=== PATIENT | female | born 1945 | race Caucasian/White ===

== ENCOUNTER 2018-09-07 19:34 | Emergency (ER) | payer MEDICARE ==
[2018-09-07 20:03] LABS: #Basophils 0.1 thou/uL (0.0-0.2); #Eosinphils 0.2 thou/uL (0.0-0.7); #Lymphocytes 1.2 thou/uL (1.20-3.40); #Monocytes 0.6 thou/uL (0.11-0.59); #Neutrophils 8.1 thou/uL (1.40-6.50); %Basophils 0.6 % (0.0-1.0); %Eosinophils 1.9 % (0.0-10.0); %Lymphocytes 12.1 % (21.0-51.0); %Monocytes 6.1 % (0.0-10.0); %Neutrophils 79.3 % (42.0-75.0); Hemoglobin 15.3 g/dL (12.0-16.0); Mean Corpuscular HGB CONC 33.7 g/dL (32.0-36.0); Mean Corpuscular Hemoglobin 32.1 pg (27.0-31.0); Mean Corpuscular Volume 95.2 fL (78.0-98.0); Mean Platelet Volume 6.8 fL (7.4-10.4); Platelet Count 238 thou/uL (130-400); Red Blood Cell (RBC) Count 4.75 mill/uL (4.20-5.40); White Blood Cell (WBC) Count 10.2 thou/uL (4.8-10.8)
--- NOTE | 2018-09-07 20:14 | CT ---
EXAM: CT brain without contrast HISTORY: Altered mental status with confusion COMPARISON: None TECHNIQUE: Multiple contiguous axial images were obtained and a CT of the brain without contrast. FINDINGS: The brain is normal in morphology and attenuation without focal lesions or confluent areas of infarction. There is no evidence of hydrocephalus, intracranial hemorrhage, or extra-axial fluid collection. The calvarium and overlying soft tissues are unremarkable. The visualized paranasal sinuses and masto id air cells are well aerated. IMPRESSION: No evidence of acute intracranial abnormality
[2018-09-07 20:26] LABS: ALT (SGPT) 24 U/L (8-55); AST (SGOT) 23 U/L (5-34); Acetaminophen Less than 6.0 mcg/mL (10.0-30.0); Albumin 4.3 g/dL (3.4-4.8); Alcohol Less than 10 mg/dL (Less than 10); Alkaline Phosphatase 84 U/L (40-150); Anion Gap 14 mmol/L (10-20); BUN (Urea Nitrogen) 15 mg/dL (9.8-20.1); CK (CPK) 112 U/L (29-168); Calc. Creatinine Clearance 0 mL/min (70-130); Calcium 9.8 mg/dL (7.8-10.44); Carbon Dioxide 27 mmol/L (23-31); Chloride 106 mmol/L (98-107); Estimated GFR-MDRD 69; Globulin 2.3 g/dL (2.4-3.5); Glucose 142 mg/dL (83-110); Potassium 3.6 mmol/L (3.5-5.1); Protein, Total 6.6 g/dL (6.0-8.3); Salicylate Less than 8.0 mg/dL (15.0-30.0); Sodium 143 mmol/L (136-145)
[2018-09-07] MEDS ORDERED: Bacitracin Zinc 1 Packet ONE (20:36)
[2018-09-07 23:28] LABS: Bilirubin Negative (Negative); Blood, Urine Trace (Negative); Clarity CLEAR (Clear); Glucose, Urine (Dipstick) Negative (Negative); Leukocyte Negative (Negative); Nitrite Negative (Negative); Protein, Urine (Dipstick) Negative (Neg-Trace); Specific Gravity, Urine 1.009 (1.002-1.036); Urobilinogen 0.2 mg/dL (0.2-1.0)
[2018-09-07 23:29] LABS: Bacteria/HPF None Seen HPF (None Seen); Hyaline Casts/LPF 4-6 HYALINE CAST LPF (0-3 Hyaline); Pathc Cast-AUWi Flag 1.49 (0-2.49); Squamous Epithelial 0-3 HPF (0-3)
[2018-09-07 23:39] LABS: Medtox Reader # READER 1
[2018-09-07 23:41] LABS: Amphetamine Not Detected (NotDetected); Barbiturates Screen Not Detected (NotDetected); Benzodiazepine Screen Detected (NotDetected); Cocaine Metabolite Screen Not Detected (NotDetected); Medtox Control Line Valid? VALID (VALID); Methadone Not Detected (NotDetected); Methamphetamine Not Detected (NotDetected); Opiate Screen Not Detected (NotDetected); Oxycodone Screen Not Detected (NotDetected); Phencyclidine (PCP) Not Detected (NotDetected); THC/Cannabinoid Screen Not Detected (NotDetected); Tricyclic Screen Not Detected (NotDetected)
[2018-09-08] MEDS ORDERED: cloNIDine 0.1 MG TAB ONE (01:36)
[2018-09-08] MEDS ORDERED: Haloperidol Lactate 5 MG/ML VIAL ONE (02:25)
== END 2018-09-08 04:58 ==
LOC: ERS 19:34
DX: F29 Unspecified psychosis not due to a substance or known physiological condition (principal); J44.9 Chronic obstructive pulmonary disease, unspecified; I10 Essential (primary) hypertension; M81.0 Age-related osteoporosis without current pathological fracture; F20.9 Schizophrenia, unspecified; Z87.891 Personal history of nicotine dependence; Z79.899 Other long term (current) drug therapy; Z79.51 Long term (current) use of inhaled steroids
CPT/HCPCS: 36415; 70450; 80053; 80306; 80307; 81003; 81015; 82550; 84443; 85025; 96360; 96372; J1630

== ENCOUNTER 2018-09-23 12:24 | Inpatient (IN) | payer MEDICARE ==
--- NOTE | 2018-09-23 14:40 | PDOC.FPRHP ---
- History PMHx: PSHx: FHx: Social: - Vital signs BP: [] HR: [] RR: [] Tmax: [] Pox: []% on [] Wt: [] FMR H&P: Upper Level - Plan Date/Time: 09/23/18 1440 I, [], have evaluated this patient and agree with findings/plan as outlined by investigator internal affairs resident. Pertinent changes/additions are listed here.
[2018-09-23] MEDS ORDERED: Bisacodyl 5 MG TAB PO PRN (16:41)
[2018-09-23] MEDS ORDERED: Lorazepam 2 MG/ML VIAL SLOW IVP PRN (16:43)
--- NOTE | 2018-09-23 17:37 | HP ---
PRIMARY CARE PROVIDER: Dr. Guerrero at [facility]. CHIEF COMPLAINT: Seizure. HISTORY OF PRESENT ILLNESS: Ms. Mackey is a pleasant 73-year-old lady who was seen at [facility] on September 23, 2018, following transfer from emergency room at times. The patient is able to provide some history. Collateral history was obtained from discussion with emergency room physician, review of medical records, and discussion with the patient's daughter, Carl, over the telephone. Ms. Mackey was living at home with her family. She was admitted to [facility] for 4 days. On September 14, 2018, she was admitted to [facility] after being sent there from [facility] for systemic inflammatory response syndrome, dementia, lung nodule, and positive blood culture. Following that admission, she was discharged to [facility] on September 20, 2018. Ms. Mackey' daughter reports that at some point between these transfers, her psychiatric medications were not resumed. At [facility], she was found to have fallen at 6:30 a.m. She had a hematoma to her forehead. She also had skin tears and bruising. When EMS arrived at [facility], she had a 30-second tonic clonic seizure with complete resolution following that. She was evaluated at [facility]. She had a recurrence of the seizure. She was therefore sent to the emergency room at [facility] for admission for Neurology Service input. The patient denies any chest pain or shortness of breath. She denies any fevers or chills. She denies any nausea or vomiting. She cannot recall having the seizure. REVIEW OF SYSTEMS: All other systems reviewed and found to be negative. PAST MEDICAL HISTORY: Asthma, gout, and COPD. PAST SURGICAL HISTORY: Cholecystectomy, spinal surgery, and cervical surgery. PSYCHIATRIC HISTORY: Schizophrenia. SOCIAL HISTORY: No history of alcohol use or recreational drug use. She is a former tobacco user. Currently in the Memory Care unit at [facility]. FAMILY HISTORY: The patient denies any family history of premature coronary artery disease. ALLERGIES: AZITHROMYCIN, CEFUROXIME, CODEINE, AND SULFA. HOME MEDICATIONS: As dictated by Dr. Fischer in her discharge summary dated September 20, 2018. It needs to be clarified whether all these medications are currently being administered. CODE STATUS: I discussed her code status. She is DNAR. PHYSICAL EXAMINATION: GENERAL: On examination, Ms. Mackey is awake and alert, not in acute distress. VITAL SIGNS: Blood pressure is 134/74, pulse 85, respiratory rate 26, oxygen saturation 91% on 2 L of oxygen, and temperature is 99.3 degrees Fahrenheit. HEENT: Eyes, no scleral icterus and no conjunctival pallor. ENT, moist mucosal membranes. No oropharyngeal erythema or exudates. NECK: Supple, nontender, trachea is midline. RESPIRATORY: Accessory muscles of breathing are not active. Chest wall movements are symmetric bilaterally. Lungs are clear to auscultation without wheeze, rhonchi, or crepitations. CARDIOVASCULAR: S1 and S2 are heard, regular. Peripheral pulses palpable. No carotid bruit. No pericardial rub. ABDOMEN: Soft, nontender, bowel sounds are heard. NEUROLOGIC: Cranial nerves 2 through 12 are intact. No focal motor or sensory deficits. Power is 5/5 in all 4 extremities. Deep tendon reflexes 2+, plantars downgoing bilaterally. MUSCULOSKELETAL: Power is 5/5 in all 4 extremities. SKIN: She has a hematoma over the forehead. She has lacerations over both arms. She also has a stage 3 buttock wound and bruising. LYMPHATIC: No cervical lymphadenopathy. PSYCHIATRIC: Normal mood, normal affect. The patient is oriented to person and place, not to time. LABORATORY DATA: Ms. Mackey' labs and investigations were reviewed. Past CT scan of the brain did not show any CT evidence of acute intracranial process. CT scan of the cervical spine showed moderate degenerative changes of cervical spine, fusion at C6-C7 and no acute fracture. She has leukocytosis with 17,900 white cells, of which 89.2% are neutrophils, normal hemoglobin, elevated platelet count of 437,000. Normal sodium, normal potassium, decreased carbon dioxide of 18, elevated anion gap of 25, elevated blood urea nitrogen of 21, normal creatinine, normal calcium, normal ALT, normal alkaline phosphatase, normal total bilirubin, mildly elevated AST of 52, urinalysis that is negative for nitrite and leukocyte esterase. ASSESSMENT AND PLAN: Ms. Mackey is a pleasant 73-year-old lady, who was seen at [facility] on September 23, 2018. Her problem list includes: 1. Seizures: Ms. Mackey had 2 seizures today. She does not have any history of seizures. She will be admitted to the hospital for further management including seizure precautions. Neurology Service will be consulted for opinion and help with management. I will start her on p.r.n. Ativan for seizures. 2. Schizophrenia: Her psychoactive medications need to be clarified and resumed. 3. Leukocytosis: Urinalysis is unremarkable. We will check chest x-ray to rule out any infiltrates. If she spikes fever, we will start the patient on empiric antibiotics. 4. Chronic obstructive pulmonary disease: Appears to be stable. Many thanks for allowing me to participate in your patient's care. Please feel free to contact me with any questions or concerns. LEVEL OF RISK: Moderate. LEVEL OF COMPLEXITY: Moderate. Job ID: [id number]
--- NOTE | 2018-09-23 19:40 | RAD ---
PA AND LATERAL CHEST: 09/23/18 HISTORY: Cough. COMPARISON: 03/09/11 study. Heart size and mediastinum are within normal limits. The lungs are clear of any infiltrative process. There are arthritic changes of the spine. IMPRESSION: No active intrathoracic disease. POS: [facility]
[2018-09-23 19:51] VITALS: BMI 21.9
[2018-09-23] MEDS: OLANZapine 2.5 MG TAB PO SCH (20:28)
[2018-09-23] MEDS: Donepezil HCl 5 MG TAB PO SCH (20:28)
[2018-09-23] MEDS: Lorazepam 1 MG TAB PO SCH (20:28)
[2018-09-23] MEDS ORDERED: PROVENTIL INHALER 6.7 G (200 INHALATIONS) INH PRN (20:29)
[2018-09-23] MEDS: Cyproheptadine 4 MG TAB PO SCH (21:06)
[2018-09-23] MEDS: metroNIDAZOLE 500 MG TAB PO SCH (21:06)
[2018-09-23] MEDS: Magnesium Oxide 400 MG TAB PO SCH (21:06)
[2018-09-24] MEDS: Ipratropium Bromide 2.5 ml Neb NEB SCH ×2 (00:26→06:57)
[2018-09-24] MEDS: Acetaminophen 325 MG TAB PO PRN ×2 (01:01→23:46)
[2018-09-24 01:03] LABS: #Eosinphils 0.1 thou/uL (0.0-0.7); #Lymphocytes 0.6 thou/uL (1.20-3.40); #Monocytes 0.7 thou/uL (0.11-0.59); #Neutrophils 10.2 thou/uL (1.40-6.50); %Basophils 0.2 % (0.0-1.0); %Eosinophils 0.6 % (0.0-10.0); %Lymphocytes 5.5 % (21.0-51.0); %Monocytes 5.7 % (0.0-10.0); %Neutrophils 87.9 % (42.0-75.0); Hemoglobin 12.5 g/dL (12.0-16.0); Mean Corpuscular HGB CONC 32.9 g/dL (32.0-36.0); Mean Corpuscular Hemoglobin 31.8 pg (27.0-31.0); Mean Corpuscular Volume 96.7 fL (78.0-98.0); Mean Platelet Volume 6.3 fL (7.4-10.4); Platelet Count 243 thou/uL (130-400); RBC Distribution Width 11.9 % (11.5-14.5); Red Blood Cell (RBC) Count 3.92 mill/uL (4.20-5.40); White Blood Cell (WBC) Count 11.6 thou/uL (4.8-10.8)
[2018-09-24 01:50] LABS: Anion Gap 15 mmol/L (10-20); BUN (Urea Nitrogen) 17 mg/dL (9.8-20.1); Calc. Creatinine Clearance 40 mL/min (70-130); Calcium 8.4 mg/dL (7.8-10.44); Carbon Dioxide 21 mmol/L (23-31); Chloride 106 mmol/L (98-107); Estimated GFR-MDRD 68; Glucose 72 mg/dL (83-110); Potassium 3.7 mmol/L (3.5-5.1); Sodium 138 mmol/L (136-145)
[2018-09-24 05:30] LABS: #Eosinphils 0.1 thou/uL (0.0-0.7); #Lymphocytes 0.8 thou/uL (1.20-3.40); #Monocytes 0.5 thou/uL (0.11-0.59); #Neutrophils 8.8 thou/uL (1.40-6.50); %Basophils 0.3 % (0.0-1.0); %Eosinophils 0.8 % (0.0-10.0); %Lymphocytes 8.1 % (21.0-51.0); %Monocytes 5.1 % (0.0-10.0); %Neutrophils 85.8 % (42.0-75.0); Hemoglobin 12.3 g/dL (12.0-16.0); Mean Corpuscular HGB CONC 33.3 g/dL (32.0-36.0); Mean Corpuscular Hemoglobin 31.8 pg (27.0-31.0); Mean Corpuscular Volume 95.7 fL (78.0-98.0); Mean Platelet Volume 6.4 fL (7.4-10.4); Platelet Count 251 thou/uL (130-400); RBC Distribution Width 12.1 % (11.5-14.5); Red Blood Cell (RBC) Count 3.85 mill/uL (4.20-5.40); White Blood Cell (WBC) Count 10.3 thou/uL (4.8-10.8)
[2018-09-24 05:45] LABS: Anion Gap 10 mmol/L (10-20); BUN (Urea Nitrogen) 18 mg/dL (9.8-20.1); Calc. Creatinine Clearance 38 mL/min (70-130); Calcium 8.3 mg/dL (7.8-10.44); Carbon Dioxide 27 mmol/L (23-31); Chloride 105 mmol/L (98-107); Estimated GFR-MDRD 64; Glucose 107 mg/dL (83-110); Potassium 3.5 mmol/L (3.5-5.1); Sodium 138 mmol/L (136-145)
[2018-09-24] MEDS: Budesonide 0.5 MG/2 ML NEB NEB SCH (06:50)
[2018-09-24] MEDS: Lorazepam 1 MG TAB PO SCH ×2 (08:28→20:05)
[2018-09-24] MEDS: Calcium Carbonate 500 MG TAB PO SCH (08:31)
[2018-09-24] MEDS: predniSONE 5 MG TAB PO SCH (08:31)
[2018-09-24] MEDS: Vitamin E 400 UNITS CAP PO SCH (08:31)
[2018-09-24] MEDS: Cyproheptadine 4 MG TAB PO SCH ×2 (08:31→20:05)
[2018-09-24] MEDS: Magnesium Oxide 400 MG TAB PO SCH ×2 (08:31→20:05)
[2018-09-24] MEDS: metroNIDAZOLE 500 MG TAB PO SCH ×3 (08:32→20:05)
[2018-09-24] MEDS: Folic Acid 1 MG TAB PO SCH (08:32)
[2018-09-24] MEDS: Thiamine 100 MG TAB PO SCH (09:00)
--- NOTE | 2018-09-24 12:53 | MRI ---
MRI OF BRAIN WITHOUT CONTRAST: 09/24/18 HISTORY: Altered mental status, new onset seizures. FINDINGS: No restricted diffusion is seen. There are a few scattered foci of T2 prolongation in the periventric ular and subcortical white matter consistent with mild chronic small vessel ischemic disease. No ev idence of infarct, hemorrhage, midline shift or abnormal extra-axial fluid collections noted. The ventricular size is appropriate and the basilar cisterns patent. The visualized paranasal sinuses and mastoid air cells are well aerated. IMPRESSION: No evidence of acute intracranial process. POS: [facility]
--- NOTE | 2018-09-24 13:59 | PDOC.PN ---
- Subjective Encounter Start Date: 09/24/18 Encounter Start Time: 07:20 Pt seen for followup re; seizure. Denies chest pain, shortness of breath, fevers or chills. - Objective Resuscitation Status - Order Detail: 09/23/18 16:41 Resuscitation Status Routine Resuscitation Status: DNAR: NO Resuscitation Discussed with: daughter KIT Vital Signs & Weight: Vital Signs (12 hours) Temp Pulse Pulse Resp BP BP Pulse Ox 09/24/18 11:39 98 F 88 16 111/56 L 98 09/24/18 11:11 77 111/56 L 09/24/18 08:30 95 09/24/18 07:36 98.2 F 81 18 105/54 L 95 09/24/18 06:50 80 12 09/24/18 04:04 97.8 F 76 20 115/55 L 96 Weight Admit Weight 94 lb 6 oz Weight 94 lb 6 oz I&O: 09/23/18 09/24/18 09/25/18 06:59 06:59 06:59 Intake Total 420 Balance 420 Result Diagrams: 09/24/18 05:07 09/24/18 05:07 Phys Exam - Physical Examination Constitutional: NAD HEENT: moist MMs Neck: supple Respiratory: clear to auscultation bilateral Cardiovascular: RRR Gastrointestinal: soft Neurological: moves all 4 limbs Psychiatric: normal affect Deviation from normal: Bruises Dx/Plan (1) Seizure Code(s): R56.9 - UNSPECIFIED CONVULSIONS Status: Acute Comment: no recurrence. MRI brain unremarkable. Await EEG. (2) Schizophrenia Code(s): F20.9 - SCHIZOPHRENIA, UNSPECIFIED Status: Chronic Comment: stable , continue olanzapine (3) COPD (chronic obstructive pulmonary disease) Status: Chronic Comment: stable - Plan * . Review of Systems - Review of Systems Constitutional: negative: fever, chills, sweats, weakness, malaise Respiratory: negative: Cough, Shortness of Breath, SOB with Excertion, Pleuritic Pain, Wheezing Cardiovascular: negative: chest pain, palpitations, orthopnea, paroxysmal nocturnal dyspnea, edema, light headedness - Medications/Allergies Allergies/Adverse Reactions: Allergies Allergy/AdvReac Type Severity Reaction Status Date / Time azithromycin Allergy Verified 09/23/18 16:41 ceftriaxone [From Rocephin] Allergy Verified 09/23/18 16:41 codeine Allergy Verified 09/23/18 16:41 Sulfa (Sulfonamide Allergy Verified 09/23/18 16:41 Antibiotics) Medications: Current Medications Acetaminophen (Tylenol) 650 mg PO Q4H PRN PRN Reason: Headache/Fever/Mild Pain (1-3) Last Admin: 09/24/18 01:01 Dose: 650 mg Albuterol Sulfate (Proventil Hfa) 2 puff INH Q4H PRN PRN Reason: SOB &/or Wheezing Albuterol/Ipratropium (Duoneb) 3 ml NEB BID-RT [facility] Last Admin: 09/24/18 06:50 Dose: 3 ml Albuterol/Ipratropium (Duoneb) 3 ml NEB Q6H PRN PRN Reason: SOB &/or Wheezing Bisacodyl (Dulcolax) 10 mg PO DAILYPRN PRN PRN Reason: Constipation Budesonide (Pulmicort Neb Solution) 0.5 mg NEB DAILY-RT [facility] Last Admin: 09/24/18 06:50 Dose: 0.5 mg Calcium Carbonate (Oscal-500) 500 mg PO DAILY [facility] Last Admin: 09/24/18 08:31 Dose: 500 mg Cholecalciferol (Vitamin D3) 1,000 units PO DAILY [facility] Last Admin: 09/24/18 08:31 Dose: 1,000 units Cyproheptadine HCl (Periactin) 4 mg PO BID [facility] Last Admin: 09/24/18 08:31 Dose: 4 mg Donepezil HCl (Aricept) 5 mg PO HS [facility] Last Admin: 09/23/18 20:28 Dose: 5 mg Folic Acid (Folvite) 1 mg PO DAILY [facility] Last Admin: 09/24/18 08:32 Dose: 1 mg Lorazepam (Ativan) 1 mg SLOW IVP Q4H PRN PRN Reason: Seizures Lorazepam (Ativan) 1 mg PO BID [facility] Last Admin: 09/24/18 08:28 Dose: 1 mg Magnesium Oxide (Magnesium Oxide) 400 mg PO BID [facility] Last Admin: 09/24/18 08:31 Dose: 400 mg Metoprolol Succinate (Toprol Xl) 25 mg PO DAILY [facility] Last Admin: 09/24/18 08:29 Dose: 25 mg Metronidazole (Flagyl) 500 mg PO TID [facility] Last Admin: 09/24/18 08:32 Dose: 500 mg Olanzapine (Zyprexa) 7.5 mg PO [facility] Last Admin: 09/23/18 20:28 Dose: 7.5 mg Pantoprazole Sodium (Protonix) 40 mg PO DAILY [facility] Last Admin: 09/24/18 08:29 Dose: 40 mg Prednisone (Prednisone) 5 mg PO [facility] Last Admin: 09/24/18 08:31 Dose: 5 mg Thiamine HCl (Thiamine) 100 mg PO DAILY [facility] Last Admin: 09/24/18 09:00 Dose: 100 mg Vitamin E (Vitamin E) 400 units PO DAILY [facility] Last Admin: 09/24/18 08:31 Dose: 400 units
[2018-09-24] MEDS: levETIRAcetam 500 mg/5 ml Oral Solution PO SCH ×2 (20:05→20:13)
[2018-09-24] MEDS: Donepezil HCl 5 MG TAB PO SCH (20:05)
[2018-09-24] MEDS: OLANZapine 2.5 MG TAB PO SCH (20:05)
--- NOTE | 2018-09-24 22:42 | CON ---
DATE OF CONSULTATION: 09/24/2018 CONSULTING PHYSICIAN: Hospitalist Service. IMPRESSION: 1. New onset seizure. 2. Mild dementia. 3. Hypertension. 4. Diabetes. 5. Asthma. PLAN: 1. Keppra 250 mg twice a day. 2. The patient will be discharged to home. HISTORY OF PRESENT ILLNESS: Ms. Mackey is a 73-year-old white female, who is in [place]. She reportedly had a witnessed seizure. She was brought into the hospital for evaluation. Her initial CT scan of the brain was normal. All her lab work was unremarkable as well. She is without any particular complaints. She has no recollection of the events. She subsequently had an EEG, which was unremarkable, and an MRI of the brain again was normal for age. She has not had any further seizures since admission. PAST MEDICAL HISTORY: As listed above. ALLERGIES: AZITHROMYCIN, CEFTRIAXONE, CODEINE, SULFA. SOCIAL HISTORY: No tobacco or alcohol. FAMILY HISTORY: Noncontributory. MEDICATIONS: Medication list was reviewed. REVIEW OF SYSTEMS: A 10-system review of systems is otherwise unremarkable. PHYSICAL EXAMINATION: VITAL SIGNS: Blood pressure 117/58, pulse 72, respirations 18, and temperature 98.9. HEENT: Has a bruise on the frontal region of her head. Pupils are equal and reactive. Conjunctivae are clear. Oropharynx, clear. NECK: Supple. EXTREMITIES: There are multiple areas of bruising and skin tears on the extremities. NEUROLOGIC: She is alert and cooperative. She is pleasant and appropriate. Her speech is fluent and clear. Cranial nerves were intact. Motor exam showed equal strength. There was no abnormal movements. Sensation was intact to light touch. She was able to sit and walk independently. LABORATORY DATA: Unremarkable CBC and serum chemistries. SUMMARY: She is an elderly lady with new onset seizures. Given her overall picture, I would go ahead and start her on a low-dose of Keppra. I will be happy to follow up with her as an outpatient. Job ID: [id number]
[2018-09-25 04:39] LABS: #Eosinphils 0.3 thou/uL (0.0-0.7); #Lymphocytes 1.5 thou/uL (1.20-3.40); #Monocytes 0.8 thou/uL (0.11-0.59); #Neutrophils 5.7 thou/uL (1.40-6.50); %Basophils 0.3 % (0.0-1.0); %Eosinophils 3.2 % (0.0-10.0); %Lymphocytes 17.6 % (21.0-51.0); %Monocytes 9.7 % (0.0-10.0); %Neutrophils 69.1 % (42.0-75.0); Hemoglobin 12.7 g/dL (12.0-16.0); Mean Corpuscular HGB CONC 34.2 g/dL (32.0-36.0); Mean Corpuscular Hemoglobin 32.6 pg (27.0-31.0); Mean Corpuscular Volume 95.3 fL (78.0-98.0); Mean Platelet Volume 6.6 fL (7.4-10.4); Platelet Count 242 thou/uL (130-400); RBC Distribution Width 11.9 % (11.5-14.5); Red Blood Cell (RBC) Count 3.89 mill/uL (4.20-5.40); White Blood Cell (WBC) Count 8.2 thou/uL (4.8-10.8)
[2018-09-25 04:56] LABS: Anion Gap 10 mmol/L (10-20); BUN (Urea Nitrogen) 9 mg/dL (9.8-20.1); Calc. Creatinine Clearance 43 mL/min (70-130); Calcium 8.4 mg/dL (7.8-10.44); Carbon Dioxide 31 mmol/L (23-31); Chloride 103 mmol/L (98-107); Estimated GFR-MDRD 73; Glucose 90 mg/dL (83-110); Potassium 3.6 mmol/L (3.5-5.1); Sodium 140 mmol/L (136-145)
[2018-09-25] MEDS: Lorazepam 1 MG TAB PO SCH (08:23)
[2018-09-25] MEDS: Magnesium Oxide 400 MG TAB PO SCH (08:23)
[2018-09-25] MEDS: metroNIDAZOLE 500 MG TAB PO SCH ×2 (08:23→15:57)
[2018-09-25] MEDS: Folic Acid 1 MG TAB PO SCH (08:23)
[2018-09-25] MEDS: Thiamine 100 MG TAB PO SCH (08:23)
[2018-09-25] MEDS: Vitamin E 400 UNITS CAP PO SCH (08:23)
[2018-09-25] MEDS: Calcium Carbonate 500 MG TAB PO SCH (08:23)
[2018-09-25] MEDS: predniSONE 5 MG TAB PO SCH (08:23)
[2018-09-25] MEDS: Cyproheptadine 4 MG TAB PO SCH (08:24)
[2018-09-25] MEDS ORDERED: levETIRAcetam 500 MG TAB PO SCH (09:00)
[2018-09-25] MEDS: Budesonide 0.5 MG/2 ML NEB NEB SCH (11:01)
[2018-09-25 15:12] VITALS: BP 108/57; TEMP 98.8
--- NOTE | 2018-09-25 15:14 | EEG ---
Referring Physician: Tyrese DIXON EEG # [id number] TEST TYPE: ROUTINE PORTABLE INPATIENT REPORT: AN EEG USING THE INTERNATIONAL TEN-TWENTY SYSTEM OF ELECTRODE PLACEMENT WAS PERFORMED. The waking background is a 10 hertz Alpha frequency. The patient remained awake throughout the study. Photic stimulation was unremarkable. No epileptiform features were present. IMPRESSION: THIS IS A NORMAL AWAKE EEG. Network Systems Operator: JAMAR Substation Designer: [email or web address]
--- NOTE | 2018-09-25 18:03 | DIS ---
DATE OF ADMISSION: 09/23/2018 DATE OF DISCHARGE: 09/25/2018 PRIMARY CARE PROVIDER: Dr. Lowry. DISCHARGE DIAGNOSIS: Seizure. CONSULTATIONS DURING THIS HOSPITALIZATION: Neurology, Dr. Song. CONDITION OF PATIENT ON THE DAY OF DISCHARGE: Stable. I assessed Ms. Mackey on the day of discharge. She denies any chest pain or shortness of breath. Vital signs are stable. S1 and S2 are heard, regular. Lungs are clear to auscultation bilaterally. DISCHARGE MEDICATIONS: Acetaminophen 650 mg every 4 hours as needed. Maalox 30 mL every 4 hours as needed; Ventolin 3 mL nebulizers every 8 hours as needed; Fosamax 70 mg every week; Pulmicort nebulizer 0.5 mg daily; calcium carbonate 500 mg daily; vitamin D3 1000 units daily; clonidine 0.1 mg 3 times a day as needed; cyproheptadine 4 mg two times a day; docusate 100 mg 2 times a day as needed; Aricept 5 mg at bedtime; folic acid 1 mg daily; Lorazepam 1 mg 2 times a day, milk of magnesia p.r.n., magnesium oxide 400 mg 2 times a day; metoprolol succinate 25 mg daily; multivitamins one tablet daily; Zyprexa 7.5 mg at bedtime; omeprazole 20 mg daily; prednisone 5 mg daily; thiamine 100 mg daily; Spiriva 18 mcg inhalation daily; vitamin E 400 units daily; Keppra 250 mg 2 times a day; Flagyl 500 mg 3 times a day until September 30, 2018. HOSPITAL COURSE: Ms. Mackey is a pleasant 73-year-old lady, who was admitted to [facility] for new onset seizure on September 23, 2018. Please refer to my history and physical note dated September 23, 2018 for further details. She was seen by Neurology Service. She did not have recurrence of seizures. MRI of the brain did not show any evidence of acute intracranial process. She also had an EEG, which was reportedly unremarkable. She has been started on Keppra. She is being discharged back to [facility], from where the patient was admitted to this hospital. On the day of discharge, she has white count of 8200, hemoglobin 12.7, and platelet count 242,000 and an unremarkable chem-7. Followup appointments: She is advised to follow up with her primary care provider in 3 to 5 days' time. Many thanks for allowing me to participate in your the patient's care. Please feel free to contact me with any questions or concerns. POST-DISCHARGE FOLLOWUP: With PCP. DISCHARGE DESTINATION: [facility]. TIME SPENT: Total amount of time spent coordinating this discharge: 33 minutes. Job ID: [id number] MTDD
--- NOTE | 2018-09-26 09:52 | PQF ---
CLINICAL DOCUMENTATION IMPROVEMENT CLARIFICATION FORM: ICD-10 Updated PLEASE DO AN ADDENDUM TO THE PROGRESS NOTE WITH ANY DOCUMENTATION UPDATES OR ADDITIONS AND CARRY THROUGH TO DC SUMMARY. THANK YOU. DATE: 09/26/2018 ATTN: Dr. Rogel Please exercise your independent, professional judgment in responding to the clarification form. Clinical indicators are provided on the bottom of this form for your review Please check appropriate box(s): [ X] I (concur) with the Wound Care findings as stated below. [ ] Pressure Ulcer: (Stage I: Erythema; Stage II: Partial thickness; Stage III : Full thickness; Stage IV: Necrosis to muscle/bone) [ ] Location: POA: [ ] Yes [ ] No[ ] Unable to determine Stage (I to IV): ___(Left___Right___Bilateral__N/A__) [ ] Location: POA: [ ] Yes [ ] No[ ] Unable to determine Stage (I to IV): ___(Left___Right___Bilateral__ N/A__) [ ] No pressure ulcer diagnosis [ ] Other diagnosis [ ] Unable to determine In addition, please specify: Present on Admission (POA): [ X ] Yes [ ] No [ ] Unable to determine For continuity of documentation, please document condition throughout progress notes and discharge summary. Thank You. CLINICAL INDICATORS - SIGNS / SYMPTOMS / LABS Wound Care Assessment 09/25: L buttock Pressure Ulcer. Unstagable Coccyx Pressure Ulcer. Unstagable RISKS: H&P 09/23: 73 yo. At [facility], she was found to have fallen. PE: She has a hematoma over the forehead . She has lacerations over both arms. She also has a stage 3 buttock wound and bruising. TREATMENT: Order 09/23: Consult: Wound Care Eval/Treat for Unstagable to sacrum and l buttock area. Wound Care Recommendations 09/25: Follow Nursing Wound Care Protocol Reinforce with absorbent pad and perforated tape Pre-ulcer skin changes limited to persistent focal edema (Stage 1) Abrasion, blister, partial thickness skin loss involving epidermis and/or dermis (Stage 2) Full thickness skin loss involving damage or necrosis of SQ tissue. (Stage 3) Necrosis of soft tissue through to underlying muscle, tendon, or bone. (Stage 4) Purple or maroon discolored skin or blood filled blister Thank you, Mayra (This form is maintained as a part of the permanent medical record) 2015 [employer] All Rights Reserved Mayra Rm RN, BSN [email or web address] Office: [phone] [facility]ITAL[facility]
== END 2018-09-25 16:05 | DRG 101 ==
LOC: ERS 12:24 → 2SE 16:57
PROVIDERS: ADMIT Internal Medicine; ATTEND Internal Medicine
DX: R56.9 Unspecified convulsions (principal); Z66 Do not resuscitate; R29.6 Repeated falls; M10.9 Gout, unspecified; F03.90 Unspecified dementia, unspecified severity, without behavioral disturbance, psychotic disturbance, mood disturbance, and anxiety; J44.9 Chronic obstructive pulmonary disease, unspecified; I10 Essential (primary) hypertension; M81.0 Age-related osteoporosis without current pathological fracture; F20.9 Schizophrenia, unspecified; W18.30XA Fall on same level, unspecified, initial encounter; S00.83XA Contusion of other part of head, initial encounter; S41.112A Laceration without foreign body of left upper arm, initial encounter; S41.111A Laceration without foreign body of right upper arm, initial encounter; D72.829 Elevated white blood cell count, unspecified; E11.9 Type 2 diabetes mellitus without complications; L89.150 Pressure ulcer of sacral region, unstageable; L89.320 Pressure ulcer of left buttock, unstageable; Z87.891 Personal history of nicotine dependence; Z90.49 Acquired absence of other specified parts of digestive tract; Z79.899 Other long term (current) drug therapy; Z88.5 Allergy status to narcotic agent; Z88.2 Allergy status to sulfonamides; Z79.52 Long term (current) use of systemic steroids; Z88.1 Allergy status to other antibiotic agents
CPT/HCPCS: 36415; 70551; 71046; 80048; 83605; 85025; 94640; 95816; 95819; J7512; J7620; J7626

== ENCOUNTER 2018-10-08 01:44 | Emergency (ER) | payer MEDICARE ==
--- NOTE | 2018-10-08 07:30 | CT ---
CT BRAIN WITHOUT CONTRAST: Date: 10/08/18 INDICATION: History of fall with abrasion to left eyelid and unknown loss of consciousness. COMPARISON: Prior noncontrast CT brain dated 09/23/18. FINDINGS: No acute infarct, hemorrhage, or hydrocephalus is present. Mastoid air cells are clear. Paranasal sin uses are clear. Skull is intact. Septum pellucidum and third ventricle are midline. IMPRESSION: No acute intracranial abnormality. POS: [facility]
--- NOTE | 2018-10-08 08:09 | RAD ---
Radiograph left elbow 4 views: HISTORY: Traumatic pain from fall FINDINGS: No fracture or dislocation. No high-grade DJD. IMPRESSION: Negative
--- NOTE | 2018-10-08 08:11 | RAD ---
XR Hip Lt 2-3 View History: Trauma. Fall from standing. Comparison: None. Findings: Small left acetabular osteophyte formation. No acute fracture or malalignment. Soft tissue contusion of the lateral left thigh. Small phleboliths in the pelvis. Impression: Left lateral thigh soft tissue contusion.
== END 2018-10-08 06:19 | disposition home or self-care (01) ==
LOC: ERS 01:44
DX: S00.93XA Contusion of unspecified part of head, initial encounter (principal); S70.01XA Contusion of right hip, initial encounter; W19.XXXA Unspecified fall, initial encounter; R29.6 Repeated falls
CPT/HCPCS: 70450

== ENCOUNTER 2019-01-20 05:07 | Observation (INO) | payer MEDICARE, MEDICAID ==
[2019-01-20] MEDS ORDERED: methylPREDNISolone Sod Succ/PF 125 MG/2 ML VIAL ONE (05:11)
[2019-01-20] MEDS ORDERED: Magnesium 2 GM/50 ML BAG (IN WATER) ONE (05:11)
[2019-01-20 06:34] LABS: #Eosinphils 0.4 thou/uL (0.0-0.7); #Lymphocytes 1.4 thou/uL (1.20-3.40); #Monocytes 0.4 thou/uL (0.11-0.59); %Basophils 0.6 % (0.0-1.0); %Eosinophils 6.1 % (0.0-10.0); %Lymphocytes 19.4 % (21.0-51.0); %Neutrophils 67.9 % (42.0-75.0); Hemoglobin 15.8 g/dL (12.0-16.0); Mean Corpuscular HGB CONC 34.4 g/dL (32.0-36.0); Mean Corpuscular Hemoglobin 31.6 pg (27.0-31.0); Mean Corpuscular Volume 91.8 fL (78.0-98.0); Mean Platelet Volume 8.4 fL (7.4-10.4); Platelet Count 133 thou/uL (130-400); RBC Distribution Width 11.9 % (11.5-14.5); White Blood Cell (WBC) Count 7.4 thou/uL (4.8-10.8)
[2019-01-20 07:05] LABS: ALT (SGPT) 13 U/L (8-55); AST (SGOT) 32 U/L (5-34); Albumin 4.1 g/dL (3.4-4.8); Alkaline Phosphatase 92 U/L (40-110); Anion Gap 16 mmol/L (10-20); BUN (Urea Nitrogen) 19 mg/dL (9.8-20.1); Bilirubin, Total 0.9 mg/dL (0.2-1.2); Calc. Creatinine Clearance 0 mL/min (70-130); Calcium 8.9 mg/dL (7.8-10.44); Carbon Dioxide 22 mmol/L (23-31); Chloride 105 mmol/L (98-107); Estimated GFR-MDRD 75; Globulin 2.7 g/dL (2.4-3.5); Glucose 128 mg/dL (83-110); Potassium 4.5 mmol/L (3.5-5.1); Protein, Total 6.8 g/dL (6.0-8.3); Sodium 138 mmol/L (136-145)
[2019-01-20] MEDS ORDERED: Acetaminophen 650 MG Suppository PR PRN (08:06)
[2019-01-20] MEDS ORDERED: Acetaminophen 325 MG TAB PO PRN (08:06)
[2019-01-20] MEDS ORDERED: Ondansetron PF 4 MG/2 ML Vial IVP PRN (08:06)
[2019-01-20] MEDS ORDERED: Ondansetron ODT 4 MG TAB PO PRN (08:06)
--- NOTE | 2019-01-20 08:19 | PDOC.FPRHP ---
- History of Present Illness Chief Complaint: SOB History of Present Illness: This is a 73yo F who presents to the ED from home for SOB. She states that she was previously living at a [facility] in [place] and moved in with her son 2 weeks ago. She states that since then she has started to have symptoms such as SOB and wheezing. She states it worsened over the last three days which eventually prompted her to come to the ER. When she arrived she was satting 64% on RA. She endorses a cough that is productive of yellow sputum. SHe states it is about a quarter size amount. She denies fever but endorses occasional chills. She has no sick contacts. She states she takes spiriva for her COPD and has an albuterol inhaler. Her last COPD exacerbation was 2-3 years ago. Her archives specialist is Dr. Holloway. Not on O2 at home. ED Course: 750mg levaquin, duonebx 3, 125mg solumedrol, 2g Mg sulfate - Allergies/Adverse Reactions Allergies Allergy/AdvReac Type Severity Reaction Status Date / Time azithromycin Allergy Verified 09/25/18 11:27 ceftriaxone [From Rocephin] Allergy Verified 09/25/18 11:27 codeine Allergy Verified 09/25/18 11:27 Sulfa (Sulfonamide Allergy Verified 09/25/18 11:27 Antibiotics) - Home Medications Medication Instructions Recorded Confirmed Type Alendronate Sodium [Fosamax] 70 mg PO Q7D 03/01/18 09/14/18 History Multivitamin [Multiple Vitamins] 1 tablet PO DAILY 05/30/18 09/14/18 History Acetaminophen [Tylenol] 650 mg PO Q4HR PRN 09/14/18 09/14/18 History Docusate Sodium 100 mg PO BID PRN 09/14/18 09/14/18 History Mag Hydrox/Al Hydrox/Simeth 30 ml PO Q4HR PRN 09/14/18 09/14/18 History [Maalox Plus] Magnesium Hydroxide [Milk Of 30 ml PO Q4H PRN 09/14/18 09/14/18 History Magnesium] cloNIDine HCl 0.1 mg PO TID PRN 09/14/18 09/14/18 History ALButerol Sulfate [Ventolin Neb] 3 ml NEB Q8HR PRN 09/23/18 09/23/18 History Budesonide [Pulmicort] 0.5 mg IH DAILY 09/23/18 09/23/18 History Calcium Carbonate [Oscal-500] 500 mg PO DAILY 09/23/18 09/23/18 History Cholecalciferol (Vitamin D3) 1,000 unit PO DAILY 09/23/18 09/23/18 History [Vitamin D] Cyproheptadine HCl 4 mg PO BID 09/23/18 09/23/18 History Donepezil HCl [Aricept] 5 mg PO HS 09/23/18 09/23/18 History Folic Acid [Folvite] 1 mg PO DAILY 09/23/18 09/23/18 History Lorazepam [Ativan] 1 mg PO BID 09/23/18 09/23/18 History Magnesium Oxide 400 mg PO BID 09/23/18 09/23/18 History Metoprolol Succinate [Toprol XL] 25 mg PO DAILY 09/23/18 09/23/18 History OLANZapine [ZyPREXA] 7.5 mg PO HS 09/23/18 09/23/18 History Omeprazole 20 mg PO DAILY 09/23/18 09/23/18 History Thiamine 100 mg PO DAILY 09/23/18 09/23/18 History Tiotropium [Spiriva Handihaler] 18 mcg INH DAILY 09/23/18 09/23/18 History Vitamin E 400 unit PO DAILY 09/23/18 09/23/18 History predniSONE [Prednisone] 5 mg PO DAILY 09/23/18 09/23/18 History levETIRAcetam [Keppra] 250 mg PO BID tab 09/25/18 Rx metroNIDAZOLE [Flagyl] 500 mg PO TID #0 09/25/18 09/23/18 Rx - History PMHx: asthma, gout, hyperglycemia, DVT, COPD, HTN, osteoporosis, dementia, schizophrenia PSHx: neck surgery, cholecystectomy FHx: non contributory Social: former smoker - smoked 1.5packs/day for 30-40 years - quit about 30 yrs ago. Denies alcohol or drug use. Living with her son who smokes cigarettes. - Review of Systems General: reports: fever/chills. denies: weight/appetite/sleep changes, night sweats, fatigue ENT: denies: nasal congestion, rhinorrhea Respiratory: reports: cough, shortness of breath. denies: congestion Cardiovascular: denies: chest pain, palpitation, edema, paroxysmal nocturnal dyspnea, orthopnea Gastrointestinal: denies: nausea, vomiting, diarrhea, constipation, abdominal pain Genitourinary: denies: dysuria Skin: denies: rashes, lesions Musculoskeletal: denies: pain, tenderness, stiffness, swelling Neurological: reports: weakness. denies: syncope Psychological: denies: anxiety, depression - Vital signs BP: 110/65, Pulse: 99, Resp: 24, Pain: 0, O2 sat: 94, Time: 01/20/2019 07:40. Weight 44.5kg - Physical Exam Constitutional: NAD, awake, alert and oriented, well developed HEENT: normocephalic and atraumatic, PERRLA, EOMI, conjunctiva clear, no scleral icterus, grossly normal hearing, normal nasal mucosa -HEENT: MM Dry Neck: supple, FROM, trachea midline, no JVD Chest: no-tender to palpation, no lesions Heart: RRR, normal S1/S2, no murmurs/rubs/gallops, pulses present, no edema Lungs: no respiratory distress -Lungs: expiratory wheeze, worse on the right; poor air movement on exam Musculoskeletal: normal structure, normal tone, ROM grossly normal Neurological: no focal deficit Skin: no rash/lesions, good turgor -Skin: delayed cap refill Heme/Lymphatic: no unusual bruising or bleeding, no purpura, no petechia Psychiatric: normal mood and affect, good judgment and insight, intact recent and remote memory FMR H&P: Results - Labs Result Diagrams: 01/20/19 06:16 01/20/19 06:16 Lab results: WBC 7.4 thou/uL (4.8-10.8) 01/20/19 06:16 Hgb 15.8 g/dL (12.0-16.0) 01/20/19 06:16 Hct 45.9 % (36.0-47.0) 01/20/19 06:16 MCV 91.8 fL (78.0-98.0) 01/20/19 06:16 Plt Count 133 thou/uL (130-400) 01/20/19 06:16 Neutrophils % 67.9 % (42.0-75.0) 01/20/19 06:16 Sodium 138 mmol/L (136-145) 01/20/19 06:16 Potassium 4.5 mmol/L (3.5-5.1) 01/20/19 06:16 Chloride 105 mmol/L (98-107) 01/20/19 06:16 Carbon Dioxide 22 mmol/L (23-31) L 01/20/19 06:16 BUN 19 mg/dL (9.8-20.1) 01/20/19 06:16 Creatinine 0.75 mg/dL (0.6-1.1) 01/20/19 06:16 Glucose 128 mg/dL (83-110) H 01/20/19 06:16 Calcium 8.9 mg/dL (7.8-10.44) 01/20/19 06:16 Total Bilirubin 0.9 mg/dL (0.2-1.2) 01/20/19 06:16 AST 32 U/L (5-34) 01/20/19 06:16 ALT 13 U/L (8-55) 01/20/19 06:16 Alkaline Phosphatase 92 U/L (40-110) 01/20/19 06:16 Serum Total Protein 6.8 g/dL (6.0-8.3) 01/20/19 06:16 Albumin 4.1 g/dL (3.4-4.8) 01/20/19 06:16 - Radiology Interpretation Chest x-ray Status: image reviewed by me (no consolidation or opacity visualized; costophrenic angles present b/l) FMR H&P: A/P - Problem List (1) Acute respiratory failure with hypoxemia Current Visit: No Status: Acute Code(s): J96.01 - ACUTE RESPIRATORY FAILURE WITH HYPOXIA Comment: hypoxia on admission and now improved (2) COPD exacerbation Current Visit: No Status: Acute Code(s): J44.1 - CHRONIC OBSTRUCTIVE PULMONARY DISEASE W (ACUTE) EXACERBATION (3) Dementia Current Visit: No Status: Acute Code(s): F03.90 - UNSPECIFIED DEMENTIA WITHOUT BEHAVIORAL DISTURBANCE (4) COPD (chronic obstructive pulmonary disease) Current Visit: No Status: Chronic Comment: stable (5) HTN (hypertension) Current Visit: No Status: Chronic Code(s): I10 - ESSENTIAL (PRIMARY) HYPERTENSION Qualifiers: Hypertension type: essential hypertension Qualified Code(s): I10 - Essential (primary) hypertension Comment: controlled (6) Osteoporosis Current Visit: No Status: Chronic Code(s): M81.0 - AGE-RELATED OSTEOPOROSIS W/O CURRENT PATHOLOGICAL FRACTURE Qualifiers: Osteoporosis type: unspecified - Plan COPD exacerbation patient presenting with mod COPD exacerbation. O2 sat 64% on RA on presentation , now 97% on RA. CXR neg for PNA. - Admit to medical observation - Procal neg, s/p levofloxacin in the ER. Will repeat procal in the AM, if neg will not continue abx. - Will continue with prednisone daily x 5 days - Duonebs WILLIS and will space out - Will monitor O2 sats continuously - keep sats between 88-92% HTN - continue home meds Hx of Dementia - currently axox3, will continue to monitor. Code: DNAR Diet: Reg VTE: lovenox Dispo: admit to med,obs; dc <48hrs Case discussed with Dr. Corona Addendum - Attending - Attending Attestation Date/Time: 01/20/19 1047 I personally evaluated the patient and discussed the management with Dr. Echeverria. I agree with the History, Examination, Assessment and Plan documented above with any addition or exceptions noted below. Patient here for a few days of increased shortness of breath and sputum production. She recently moved in with her son who continues to smoke. She has had no fevers/chills. On arrival was apparently hypoxic but currently satting well on room air. Her CXR looks stable from previous. Labs reassuring. PCT negative. Her exam is significant for diffuse expiratory wheezes, mild, and decent air entry. She will be admitted to obs, continue steroids, neb treatments , and O2 as necessary. If doing well, may make quick turnaround and be stable for d/c tomorrow. Ambulate as tolerated. Continue chronic meds for chronic conditions.
--- NOTE | 2019-01-20 09:44 | RAD ---
CHEST 1 VIEW: COMPARISON: 09/13/2018. FINDINGS: Normal cardiac silhouette. Chronic change of the lung parenchyma. No masses or consolidation. No p leural effusion or pneumothorax. IMPRESSION: No acute cardiopulmonary process. POS: BAM
[2019-01-20 14:06] VITALS: BMI 23.8
[2019-01-20] MEDS: Enoxaparin Sodium 40 MG/0.4 ML SYRINGE SC SCH (14:07)
[2019-01-20] MEDS ORDERED: Albuterol Sulfate 2.5 mg/3 ml Neb NEB PRN (21:36)
[2019-01-20] MEDS ORDERED: Lorazepam 1 MG TAB PO SCH ×2 (21:45→22:00)
[2019-01-20] MEDS ORDERED: OLANZapine 2.5 MG TAB PO SCH ×2 (21:45→22:00)
[2019-01-20] MEDS ORDERED: Budesonide 0.5 MG/2 ML NEB NEB SCH (22:00)
[2019-01-20] MEDS ORDERED: Cyproheptadine 4 MG TAB PO SCH (22:00)
[2019-01-20] MEDS ORDERED: levETIRAcetam 500 mg/5 ml Oral Solution PO SCH (22:00)
[2019-01-20] MEDS ORDERED: Donepezil HCl 5 MG TAB PO SCH (22:00)
[2019-01-20] MEDS ORDERED: levETIRAcetam 500 MG TAB PO SCH (22:00)
[2019-01-21] MEDS: Budesonide 0.5 MG/2 ML NEB NEB SCH ×2 (06:42→10:46)
--- NOTE | 2019-01-21 06:50 | PDOC.FM ---
- Subjective Subjective: NAEO. Patient resting comfortably in bed. Patient states she feels slightly short of breath and wheezy still. She was sitting up eating breakfast. She was able to speak in full sentences. Denies any chest pain. Denies fever/chills. - Objective MAR Reviewed: Yes Vital Signs & Weight: Vital Signs (12 hours) Temp Pulse Resp BP Pulse Ox 01/21/19 00:00 98.3 F 83 20 112/71 100 01/20/19 23:42 91 18 100 01/20/19 23:41 91 18 100 01/20/19 19:46 98.0 F 111 H 20 118/68 95 Weight Weight 46.629 kg I&O: 01/19/19 01/20/19 01/21/19 06:59 06:59 06:59 Intake Total 830 Output Total 1050 Balance -220 Result Diagrams: 01/20/19 06:16 01/20/19 06:16 Phys Exam - Physical Examination Constitutional: NAD HEENT: moist MMs, sclera anicteric Neck: supple, full ROM exp wheeze heard greater on the R. Good air movement Cardiovascular: RRR, no significant murmur, no rub Gastrointestinal: soft, non-tender, no distention, positive bowel sounds Musculoskeletal: no edema, pulses present Neurological: non-focal, moves all 4 limbs Psychiatric: normal affect, A&O x 3 Skin: no rash, normal turgor, cap refill <2 seconds Dx/Plan (1) Acute respiratory failure with hypoxemia Code(s): J96.01 - ACUTE RESPIRATORY FAILURE WITH HYPOXIA Status: Acute (2) COPD exacerbation Code(s): J44.1 - CHRONIC OBSTRUCTIVE PULMONARY DISEASE W (ACUTE) EXACERBATION Status: Acute (3) Dementia Code(s): F03.90 - UNSPECIFIED DEMENTIA WITHOUT BEHAVIORAL DISTURBANCE Status: Acute (4) COPD (chronic obstructive pulmonary disease) Status: Chronic (5) HTN (hypertension) Code(s): I10 - ESSENTIAL (PRIMARY) HYPERTENSION Status: Chronic Qualifiers: Hypertension type: essential hypertension Qualified Code(s): I10 - Essential (primary) hypertension (6) Osteoporosis Code(s): M81.0 - AGE-RELATED OSTEOPOROSIS W/O CURRENT PATHOLOGICAL FRACTURE Status: Chronic Qualifiers: Osteoporosis type: unspecified - Plan Plan: COPD exacerbation patient presenting with mod COPD exacerbation. O2 sat 64% on RA on presentation , now 97% on RA. CXR neg for PNA. - Procal neg, s/p levofloxacin in the ER. Procal continues to be neg. - Will continue with prednisone daily x 5 days. - Duonebs PRN - Will monitor O2 sats continuously - keep sats between 88-92%. HTN - continue home meds. BP at goal. Hx of Dementia - currently axox3, will continue to monitor. Continue home meds Code: DNAR Diet: Reg VTE: lovenox Dispo: likely dc today Case discussed with Dr. Corona Addendum - Attending - Attending Attestation Date/Time: 01/21/19 1040 I personally evaluated the patient and discussed the management with Dr. Echeverria. I agree with the History, Examination, Assessment and Plan documented above with any addition or exceptions noted below. Patient here with COPD exacerbation. She feels improved. However, she has not gotten out of bed. Encourage ambulation today and ensure she is getting her scheduled neb treatments. Will need re-eval this afternoon for possible discharge or needs another day. Weaned off O2 as sats in 90s. Feels well.
[2019-01-21] MEDS ORDERED: predniSONE 5 MG TAB PO SCH (08:00)
[2019-01-21] MEDS ORDERED: predniSONE 20 MG TAB PO SCH (08:00)
[2019-01-21] MEDS: Enoxaparin Sodium 40 MG/0.4 ML SYRINGE SC SCH (08:12)
[2019-01-21] MEDS ORDERED: levETIRAcetam 500 mg/5 ml Oral Solution PO SCH (09:00)
[2019-01-21] MEDS ORDERED: Lorazepam 1 MG TAB PO SCH ×2 (09:00)
[2019-01-21] MEDS ORDERED: Non-Formulary Item 1 EACH (Tiotropium [Spiriva Handihaler] 18 MCG) INH SCH (09:00)
[2019-01-21] MEDS ORDERED: Cyproheptadine 4 MG TAB PO SCH (09:00)
[2019-01-21] MEDS ORDERED: Folic Acid 1 MG TAB PO SCH (09:00)
[2019-01-21 17:47] VITALS: BP 115/77; TEMP 97.6
[2019-01-21] MEDS ORDERED: OLANZapine 2.5 MG TAB PO SCH ×2 (21:00)
[2019-01-21] MEDS ORDERED: Donepezil HCl 5 MG TAB PO SCH (21:00)
--- NOTE | 2019-01-22 12:11 | DIS ---
DATE OF ADMISSION: 01/20/2019 DATE OF DISCHARGE: 01/21/2019 RESIDENT: Chiquis Echeverria MD ADMITTING ATTENDING: Magalys Villegas MD DISCHARGE ATTENDING: Saroj Corona MD. CONSULTS: None. PROCEDURES: None. DISCHARGE MEDICATIONS: 1. Prednisone 40 mg oral every morning for the next 3 days. 2. Formoterol 20 mcg inhalation twice daily. 3. Donepezil 5 mg oral at bedtime. 4. Ativan 1 mg oral twice daily. 5. Olanzapine 7.5 mg oral at bedtime. 6. Albuterol 3 mL nebulizer every 8 hours as needed. 7. Folic acid 1 mg oral daily. 8. Metoprolol succinate 25 mg oral daily. 9. Omeprazole 20 mg oral daily. 10. Pulmicort 0.5 mg inhalation 3 times daily. 11. Spiriva 18 mcg inhalation daily. 12. Cyproheptadine 4 mg oral twice daily. 13. Keppra 250 mg oral twice daily. DISCONTINUED MEDICATIONS: prednisone 5 mg daily. PRIMARY DIAGNOSIS: Chronic obstructive pulmonary disease exacerbation, moderate. SECONDARY DIAGNOSES: Hypertension and history of dementia. HISTORY OF PRESENT ILLNESS/HOSPITAL COURSE: This is a 73-year-old female with hx of COPD who presented to the ER from home for shortness of breath. The patient states that she was previously living at long term in [place] and recently moved in her son about 2 weeks ago. She states that ever since then, she started having symptoms of shortness of breath and wheezing. She said they worsened over the last 3 days, which prompted her to come to the ER. Reportedly, she walked into the ER saturating at 64% on room air. The patient endorsed a cough that was productive of yellow sputum about a quarter-sized amount. The patient did report occasional chills and denied fever. The patient states that she takes Spiriva and albuterol for her COPD. Her last exacerbation was about 2-3 years ago. The patient sees Dr. Holloway. She is not on home O2. In the ER, the patient was given Levaquin, DuoNeb, Solu-Medrol as well as magnesium sulfate. The patient was saturating 94% on room air at the time of exam. The patient was admitted to the medical observation floor for a moderate COPD exacerbation. The patient's procalcitonin was negative and repeat was negative also the next day and antibiotics were not continued. The patient was continued on a steroid throughout her stay, to be continued for a total of a 5-day course. The patient was given a DuoNeb scheduled and then spaced out. Her O2 sats were monitored continuously and she remained above 88% on room air. The patient was able to walk around the room without desatting prior to discharge. The patient's chronic conditions remained stable. Upon discharge, the Symbicort was added to the patient's COPD regimen. DISPOSITION: Stable. DISCHARGE INSTRUCTIONS: 1. Location: Home. 2. Diet, regular. 3. Activity: Ad sophia. 4. Follow up with PCP, Dr. Misael Yi within 3 to 5 days and follow up with Dr. Holloway within 2 weeks. Job ID: [id number] MTDD
== END 2019-01-21 18:00 | disposition home or self-care (01) ==
LOC: ERS 05:07 → ERHOLD 07:23 → INTOOBSV 07:23 → T4-A 13:22
PROVIDERS: ADMIT Family Medicine; ATTEND Family Medicine
DX: J44.1 Chronic obstructive pulmonary disease with (acute) exacerbation (principal); J96.01 Acute respiratory failure with hypoxia; I10 Essential (primary) hypertension; F03.90 Unspecified dementia, unspecified severity, without behavioral disturbance, psychotic disturbance, mood disturbance, and anxiety; M81.0 Age-related osteoporosis without current pathological fracture; F20.9 Schizophrenia, unspecified; Z79.899 Other long term (current) drug therapy; Z87.891 Personal history of nicotine dependence; Z88.1 Allergy status to other antibiotic agents; Z88.2 Allergy status to sulfonamides; Z88.5 Allergy status to narcotic agent; Z66 Do not resuscitate
CPT/HCPCS: 71045; 80053; 84145 ×2; 84484; 85025; 94640 ×3; 96365; 96366; 96372; 96375; 99285; G0378 ×3; 36415; J1650; J1956; J2930; J3475; J7512; J7620; J7626

== ENCOUNTER 2019-01-28 08:23 | Outpatient (CLI) | payer MEDICARE, MEDICAID ==
--- NOTE | 2019-01-28 08:58 | RAD ---
2 views chest: 01/28/2019 COMPARISON: 09/27/2017 and 09/23/2018 HISTORY: Dyspnea FINDINGS: Heart and mediastinal contours are stable. No pneumothorax or pleural fluid. No focal conso lidation or alveolar edema. There is a severe anterior wedge compression fracture of the lower thoracic spine, likely representin g the T12 vertebral body. Anterior wedge compression fracture of T8 and T9 noted, stable. Mild superior endplate fracture of T6 and new mild inferior endplate fracture of T10 noted. IMPRESSION: Multiple thoracic spine fractures as detailed above. No radiographic evidence of acute ca rdiopulmonary disease.
== END 2019-01-28 08:24 | disposition home or self-care (01) ==
LOC: RAD 08:23
PROVIDERS: ATTEND Internal Medicine Critical Care Medicine
DX: R06.00 Dyspnea, unspecified (principal); S22.060A Wedge compression fracture of T7-T8 vertebra, initial encounter for closed fracture
CPT/HCPCS: 71046

== ENCOUNTER 2019-10-17 10:47 | Outpatient (CLI) | payer MEDICARE, MEDICAID ==
--- NOTE | 2019-10-17 14:15 | MMO ---
Bilateral MAMMO Bilat Screen [facility]. CLINICAL HISTORY: Patient is 74 years old and is seen for screening. The patient has the following family history of breast cancer: paternal aunt. The patient has no personal history of cancer. The patient has a history of right Excisional Biopsy in March, - benign. VIEWS: The views performed were: bilateral craniocaudal with tomosynthesis and bilateral mediolateral oblique with tomosynthesis. FILMS COMPARED: The present examination has been compared to prior imaging studies performed at [facility] on 05/15/2016 and 07/09/2017. This study has been interpreted with the assistance of computer-aided detection. MAMMOGRAM FINDINGS: There are scattered fibroglandular densities. Benign calcifications are noted bilaterally. There are no suspicious masses, suspicious calcifications, or new areas of architectural distortion. IMPRESSION: THERE IS NO MAMMOGRAPHIC EVIDENCE OF MALIGNANCY. A ROUTINE FOLLOW-UP MAMMOGRAM IN 1 YEAR IS RECOMMENDED. THE RESULTS OF THIS EXAM WERE SENT TO THE PATIENT. ACR BI-RADS Category 2 - Benign finding MAMMOGRAPHY NOTE: 1. A negative mammogram report should not delay a biopsy if a dominant of clinically suspicious mass is present. 2. Approximately 10% to 15% of breast cancers are not detected by mammography. 3. Adenosis and dense breasts may obscure an underlying neoplasm. Reported by: TRACY VIDALES MD Electonically Signed: [id number]
== END 2019-10-17 10:48 | disposition home or self-care (01) ==
LOC: BICMAMMO 10:47
PROVIDERS: ATTEND Family Medicine
DX: Z12.31 Encounter for screening mammogram for malignant neoplasm of breast (principal); Z80.3 Family history of malignant neoplasm of breast; Z91.89 Other specified personal risk factors, not elsewhere classified
CPT/HCPCS: 77063; 77067

== ENCOUNTER 2020-06-12 04:02 | Inpatient (IN) | payer MEDICARE, MEDICAID ==
[2020-06-12 05:34] LABS: #Eosinphils 0.1 thou/uL (0.0-0.7); #Lymphocytes 0.6 thou/uL (1.20-3.40); #Monocytes 0.3 thou/uL (0.11-0.59); %Basophils 0.7 % (0.0-1.0); %Eosinophils 1.3 % (0.0-10.0); %Lymphocytes 9.8 % (21.0-51.0); %Monocytes 4.6 % (0.0-10.0); %Neutrophils 83.7 % (42.0-75.0); Hemoglobin 14.4 g/dL (12.0-16.0); Mean Corpuscular Hemoglobin 30.9 pg (27.0-31.0); Mean Corpuscular Volume 93.7 fL (78.0-98.0); Mean Platelet Volume 6.4 fL (7.4-10.4); Platelet Count 227 thou/uL (130-400); Red Blood Cell (RBC) Count 4.65 mill/uL (4.20-5.40)
[2020-06-12 05:56] LABS: Albumin 3.7 g/dL (3.4-4.8)
[2020-06-12 05:57] LABS: Chloride 106 mmol/L (98-107); Potassium 4.1 mmol/L (3.5-5.1); Sodium 141 mmol/L (136-145)
[2020-06-12 05:58] LABS: Calcium 8.2 mg/dL (7.8-10.44); Globulin 2.4 g/dL (2.4-3.5); Glucose 118 mg/dL (83-110); Protein, Total 6.1 g/dL (5.8-8.1)
[2020-06-12 06:00] LABS: Anion Gap 13 mmol/L (10-20); Bilirubin, Total 0.9 mg/dL (0.2-1.2); Carbon Dioxide 26 mmol/L (23-31)
[2020-06-12 06:01] LABS: Alkaline Phosphatase 70 U/L (40-110)
[2020-06-12 06:02] LABS: BUN (Urea Nitrogen) 12 mg/dL (9.8-20.1); Calc. Creatinine Clearance 0 mL/min (70-130)
[2020-06-12 06:03] LABS: AST (SGOT) 14 U/L (5-34)
[2020-06-12 06:04] LABS: ALT (SGPT) 8 U/L (8-55); CK (CPK) 95 U/L (29-168)
[2020-06-12] MEDS ORDERED: Metoprolol Tartrate 5 MG/5 ML VIAL ONE ×2 (06:23→06:25)
[2020-06-12 06:58] LABS: SARS-CoV-2 NAA Rapid Test Not Detected (NotDetected)
[2020-06-12] MEDS ORDERED: Acetaminophen 325 MG TAB PO PRN (07:34)
[2020-06-12] MEDS ORDERED: Senokot S 8.6-50 MG TAB PO PRN (07:34)
[2020-06-12 08:22] LABS: Troponin I Less than 0.010 ng/mL (< 0.028)
[2020-06-12] MEDS: Famotidine 20 MG TAB PO SCH ×2 (09:00→20:01)
[2020-06-12] MEDS: Enoxaparin Sodium 40 MG/0.4 ML SYRINGE SC SCH (09:00)
[2020-06-12 10:21] VITALS: BMI 23.2
[2020-06-12 11:09] LABS: Troponin I 0.018 ng/mL (< 0.028)
[2020-06-12] MEDS: methylPREDNISolone Sod Succ 40 MG VIAL IVP SCH (12:16)
[2020-06-12] MEDS ORDERED: Lorazepam 0.5 MG TAB PO PRN (18:02)
[2020-06-12] MEDS: Mometasone 200 MCG/Formoterol 5 MCG 120 PUFF INHALER INH SCH (19:17)
[2020-06-12] MEDS ORDERED: hydrALAZINE 20 MG/ML VIAL SLOW IVP PRN (19:47)
[2020-06-12] MEDS: Cyproheptadine 4 MG TAB PO SCH (20:01)
[2020-06-12] MEDS: Donepezil HCl 5 MG TAB PO SCH (20:01)
[2020-06-12] MEDS: Lorazepam 1 MG TAB PO SCH (20:02)
[2020-06-12] MEDS: levETIRAcetam 500 MG TAB PO SCH (20:02)
[2020-06-12] MEDS: PALIPERIDONE 3 MG PO SCH (20:03)
[2020-06-12] MEDS: OLANZapine 2.5 MG TAB PO SCH (20:03)
[2020-06-13] MEDS ORDERED: Ipratropium Bromide 2.5 ml Neb NEB SCH (01:00)
[2020-06-13 05:56] LABS: #Lymphocytes 0.8 thou/uL (1.20-3.40); #Monocytes 0.7 thou/uL (0.11-0.59); #Neutrophils 6.3 thou/uL (1.40-6.50); %Basophils 0.1 % (0.0-1.0); %Eosinophils 0.4 % (0.0-10.0); %Lymphocytes 10.4 % (21.0-51.0); %Monocytes 8.4 % (0.0-10.0); %Neutrophils 80.8 % (42.0-75.0); Mean Corpuscular HGB CONC 32.4 g/dL (32.0-36.0); Mean Corpuscular Hemoglobin 30.8 pg (27.0-31.0); Mean Platelet Volume 6.5 fL (7.4-10.4); Platelet Count 223 thou/uL (130-400); Red Blood Cell (RBC) Count 4.22 mill/uL (4.20-5.40); White Blood Cell (WBC) Count 7.8 thou/uL (4.8-10.8)
[2020-06-13 06:18] LABS: ALT (SGPT) 7 U/L (8-55); AST (SGOT) 11 U/L (5-34); Albumin 3.3 g/dL (3.4-4.8); Alkaline Phosphatase 59 U/L (40-110); Anion Gap 10 mmol/L (10-20); BUN (Urea Nitrogen) 9 mg/dL (9.8-20.1); Bilirubin, Total 0.7 mg/dL (0.2-1.2); Calc. Creatinine Clearance 66 mL/min (70-130); Calcium 7.9 mg/dL (7.8-10.44); Carbon Dioxide 26 mmol/L (23-31); Chloride 110 mmol/L (98-107); Glucose 104 mg/dL (83-110); Magnesium 2.6 mg/dL (1.6-2.6); Protein, Total 5.3 g/dL (5.8-8.1); Sodium 142 mmol/L (136-145)
[2020-06-13] MEDS: Mometasone 200 MCG/Formoterol 5 MCG 120 PUFF INHALER INH SCH ×2 (07:34→21:36)
[2020-06-13] MEDS: Budesonide 0.5 MG/2 ML NEB NEB SCH ×3 (07:35→21:36)
[2020-06-13] MEDS: Enoxaparin Sodium 40 MG/0.4 ML SYRINGE SC SCH (09:47)
[2020-06-13] MEDS: Cyproheptadine 4 MG TAB PO SCH ×2 (10:38→20:00)
[2020-06-13] MEDS: Famotidine 20 MG TAB PO SCH ×2 (10:38→20:00)
[2020-06-13] MEDS: levETIRAcetam 500 MG TAB PO SCH ×2 (10:39→20:01)
[2020-06-13] MEDS: Lorazepam 1 MG TAB PO SCH ×2 (10:39→20:01)
[2020-06-13] MEDS: PALIPERIDONE 3 MG PO SCH ×2 (10:40→20:02)
[2020-06-13] MEDS: methylPREDNISolone Sod Succ 40 MG VIAL IVP SCH (10:40)
[2020-06-13] MEDS: Donepezil HCl 5 MG TAB PO SCH (20:00)
[2020-06-13] MEDS: OLANZapine 2.5 MG TAB PO SCH (20:01)
[2020-06-13] MEDS ORDERED: Ibuprofen 600 MG TAB PO SCH (20:30)
[2020-06-14] MEDS ORDERED: OLANZapine 10 MG VIAL IM SCH (01:00)
[2020-06-14] MEDS ORDERED: Sterile Water 10 ML VIAL FS PRN (01:00)
[2020-06-14 02:04] LABS: Bacteria/HPF None Seen HPF (None Seen); Bilirubin Negative (Negative); Blood, Urine 1+ (Negative); Clarity Clear (Clear); Glucose, Urine (Dipstick) Normal (Negative); Ketone, Urine Negative (Negative); Leukocyte 250 Leu/uL (Negative); Nitrite Negative (Negative); Protein, Urine (Dipstick) Negative (Neg-Trace); RBC/HPF 0-3 HPF (0-3); Specific Gravity, Urine 1.013 (1.002-1.036); Squamous Epithelial 0-3 HPF (0-3); Urobilinogen Normal mg/dL (Less than 2); WBC/HPF 0-3 HPF (0-3); pH, Urine 6.5 (5.0-9.0)
[2020-06-14] MEDS ORDERED: predniSONE 20 MG TAB PO SCH (08:00)
[2020-06-14] MEDS ORDERED: hydrALAZINE 20 MG/ML VIAL SLOW IVP PRN (08:07)
[2020-06-14] MEDS: Mometasone 200 MCG/Formoterol 5 MCG 120 PUFF INHALER INH SCH (08:27)
[2020-06-14] MEDS: Budesonide 0.5 MG/2 ML NEB NEB SCH (08:27)
[2020-06-14] MEDS: Enoxaparin Sodium 40 MG/0.4 ML SYRINGE SC SCH (08:39)
[2020-06-14 08:56] VITALS: TEMP 97.9
[2020-06-14] MEDS: levETIRAcetam 500 MG TAB PO SCH (10:30)
[2020-06-14] MEDS: Cyproheptadine 4 MG TAB PO SCH (10:31)
[2020-06-14] MEDS: Famotidine 20 MG TAB PO SCH (10:31)
[2020-06-14] MEDS: PALIPERIDONE 3 MG PO SCH (10:32)
[2020-06-14] MEDS: Lorazepam 1 MG TAB PO SCH (10:33)
[2020-06-14] MEDS ORDERED: guaiFENesin ER 600 MG TAB PO SCH ×2 (11:15→21:00)
[2020-06-14 12:07] VITALS: BP 125/80
== END 2020-06-14 14:01 | disposition home or self-care (01) | DRG 189 ==
LOC: ERS 04:02 → SUATTDRO 04:02 → ONC 06:26
PROVIDERS: ADMIT Internal Medicine; ATTEND Internal Medicine
DX: J96.01 Acute respiratory failure with hypoxia (principal); J44.1 Chronic obstructive pulmonary disease with (acute) exacerbation; Z66 Do not resuscitate; Z20.822 Contact with and (suspected) exposure to COVID-19; F03.90 Unspecified dementia, unspecified severity, without behavioral disturbance, psychotic disturbance, mood disturbance, and anxiety; J45.909 Unspecified asthma, uncomplicated; M10.9 Gout, unspecified; I10 Essential (primary) hypertension; M81.0 Age-related osteoporosis without current pathological fracture; F20.9 Schizophrenia, unspecified; E78.5 Hyperlipidemia, unspecified; G40.909 Epilepsy, unspecified, not intractable, without status epilepticus; Z87.891 Personal history of nicotine dependence; Z88.1 Allergy status to other antibiotic agents; Z88.2 Allergy status to sulfonamides; Z88.5 Allergy status to narcotic agent; Z90.49 Acquired absence of other specified parts of digestive tract
CPT/HCPCS: 0240U; 36415; 71045; 80053; 81001; 82550; 83735; 83880; 84484; 85025; 87086; 93005; 94640; 94760; 96374; J0360; J2358; J2920; J7512; J7620; J7626

== ENCOUNTER 2020-07-23 12:26 | Inpatient (IN) | payer MEDICARE, MEDICAID ==
[~2020-07-23 12:26] MED LIST: Iopamidol-370 76% 500 ML 1 ML ONE
[2020-07-23 13:21] LABS: #Eosinphils 0.1 thou/uL (0.0-0.7); #Lymphocytes 0.8 thou/uL (1.20-3.40); #Monocytes 0.4 thou/uL (0.11-0.59); #Neutrophils 8.7 thou/uL (1.40-6.50); %Basophils 0.4 % (0.0-1.0); %Eosinophils 1.1 % (0.0-10.0); %Lymphocytes 7.5 % (21.0-51.0); %Monocytes 4.3 % (0.0-10.0); %Neutrophils 86.8 % (42.0-75.0); Hemoglobin 14.4 g/dL (12.0-16.0); Mean Corpuscular HGB CONC 31.7 g/dL (32.0-36.0); Mean Corpuscular Hemoglobin 29.2 pg (27.0-31.0); Mean Corpuscular Volume 92.1 fL (78.0-98.0); Mean Platelet Volume 6.6 fL (7.4-10.4); Platelet Count 217 thou/uL (130-400); RBC Distribution Width 12.3 % (11.5-14.5); Red Blood Cell (RBC) Count 4.94 mill/uL (4.20-5.40)
[2020-07-23 13:47] LABS: ALT (SGPT) Less than 7 U/L (8-55); AST (SGOT) 14 U/L (5-34); Albumin 3.8 g/dL (3.4-4.8); Alkaline Phosphatase 69 U/L (40-110); Anion Gap 16 mmol/L (10-20); BUN (Urea Nitrogen) 10 mg/dL (9.8-20.1); Bilirubin, Total 1.1 mg/dL (0.2-1.2); Calc. Creatinine Clearance 0 mL/min (70-130); Calcium 8.7 mg/dL (7.8-10.44); Carbon Dioxide 23 mmol/L (23-31); Chloride 104 mmol/L (98-107); Globulin 2.3 g/dL (2.4-3.5); Glucose 122 mg/dL (83-110); Magnesium 2.2 mg/dL (1.6-2.6); Potassium 3.7 mmol/L (3.5-5.1); Protein, Total 6.1 g/dL (5.8-8.1); Sodium 139 mmol/L (136-145)
[2020-07-23] MEDS ORDERED: Acetaminophen 325 MG TAB PO PRN (17:44)
[2020-07-23] MEDS ORDERED: Ondansetron PF 4 MG/2 ML Vial IVP PRN (17:44)
[2020-07-23] MEDS ORDERED: Bisacodyl 5 MG TAB PO PRN (17:44)
[2020-07-23] MEDS ORDERED: Albuterol Sulfate 2.5 mg/3 ml Neb NEB PRN (18:23)
[2020-07-23 18:44] VITALS: BMI 25.6
[2020-07-23] MEDS: Ipratropium Bromide 2.5 ml Neb NEB SCH (19:27)
[2020-07-23 19:59] LABS: Troponin I 0.012 ng/mL (< 0.028)
[2020-07-23] MEDS ORDERED: Lorazepam 1 MG TAB PO SCH (22:15)
[2020-07-23] MEDS: Donepezil HCl 5 MG TAB PO SCH (22:16)
[2020-07-23] MEDS: levETIRAcetam 500 MG TAB PO SCH (22:17)
[2020-07-24] MEDS: Ipratropium Bromide 2.5 ml Neb NEB SCH ×4 (01:45→18:53)
[2020-07-24 04:52] LABS: #Eosinphils 0.2 thou/uL (0.0-0.7); #Lymphocytes 1.3 thou/uL (1.20-3.40); #Monocytes 0.5 thou/uL (0.11-0.59); #Neutrophils 4.5 thou/uL (1.40-6.50); %Basophils 0.6 % (0.0-1.0); %Eosinophils 2.6 % (0.0-10.0); %Lymphocytes 19.4 % (21.0-51.0); %Monocytes 8.1 % (0.0-10.0); %Neutrophils 69.3 % (42.0-75.0); Hemoglobin 13.4 g/dL (12.0-16.0); Mean Corpuscular HGB CONC 32.8 g/dL (32.0-36.0); Mean Corpuscular Hemoglobin 30.5 pg (27.0-31.0); Mean Corpuscular Volume 92.9 fL (78.0-98.0); Mean Platelet Volume 6.7 fL (7.4-10.4); Platelet Count 218 thou/uL (130-400); RBC Distribution Width 12.2 % (11.5-14.5); Red Blood Cell (RBC) Count 4.38 mill/uL (4.20-5.40); White Blood Cell (WBC) Count 6.5 thou/uL (4.8-10.8)
[2020-07-24 05:10] LABS: Anion Gap 13 mmol/L (10-20); BUN (Urea Nitrogen) 8 mg/dL (9.8-20.1); Calc. Creatinine Clearance 62 mL/min (70-130); Calcium 8.3 mg/dL (7.8-10.44); Carbon Dioxide 23 mmol/L (23-31); Chloride 107 mmol/L (98-107); Glucose 85 mg/dL (83-110); Potassium 3.6 mmol/L (3.5-5.1); Sodium 139 mmol/L (136-145)
[2020-07-24] MEDS: Arformoterol 15 MCG/2 ML NEB NEB SCH ×2 (06:30→18:55)
[2020-07-24] MEDS: Budesonide 0.5 MG/2 ML NEB NEB SCH ×3 (06:30→18:55)
[2020-07-24] MEDS: predniSONE 5 MG TAB PO SCH (09:57)
[2020-07-24] MEDS: Enoxaparin Sodium 40 MG/0.4 ML SYRINGE SC SCH (09:58)
[2020-07-24] MEDS: levETIRAcetam 500 MG TAB PO SCH ×2 (09:58→21:51)
[2020-07-24] MEDS ORDERED: Lorazepam 2 MG/ML VIAL SLOW IVP SCH (16:00)
[2020-07-24 17:58] LABS: SARS-CoV-2 PCR by NAA Not Detected (NotDetected)
[2020-07-24] MEDS ORDERED: Lorazepam 1 MG TAB PO SCH (21:00)
[2020-07-24] MEDS: Donepezil HCl 5 MG TAB PO SCH (21:52)
[2020-07-25] MEDS: Ipratropium Bromide 2.5 ml Neb NEB SCH ×2 (00:54→07:05)
[2020-07-25 05:42] LABS: #Basophils 0.1 thou/uL (0.0-0.2); #Eosinphils 0.2 thou/uL (0.0-0.7); #Lymphocytes 1.4 thou/uL (1.20-3.40); #Monocytes 0.5 thou/uL (0.11-0.59); #Neutrophils 4.1 thou/uL (1.40-6.50); %Basophils 1.1 % (0.0-1.0); %Eosinophils 2.8 % (0.0-10.0); %Lymphocytes 22.5 % (21.0-51.0); %Monocytes 7.8 % (0.0-10.0); %Neutrophils 65.9 % (42.0-75.0); Hemoglobin 13.7 g/dL (12.0-16.0); Mean Corpuscular HGB CONC 32.4 g/dL (32.0-36.0); Mean Corpuscular Hemoglobin 30.1 pg (27.0-31.0); Mean Corpuscular Volume 92.7 fL (78.0-98.0); Mean Platelet Volume 6.5 fL (7.4-10.4); Platelet Count 218 thou/uL (130-400); RBC Distribution Width 12.1 % (11.5-14.5); Red Blood Cell (RBC) Count 4.55 mill/uL (4.20-5.40); White Blood Cell (WBC) Count 6.3 thou/uL (4.8-10.8)
[2020-07-25 06:01] LABS: Anion Gap 11 mmol/L (10-20); BUN (Urea Nitrogen) 7 mg/dL (9.8-20.1); Calc. Creatinine Clearance 67 mL/min (70-130); Calcium 8.4 mg/dL (7.8-10.44); Carbon Dioxide 24 mmol/L (23-31); Chloride 107 mmol/L (98-107); Glucose 81 mg/dL (83-110); Potassium 3.3 mmol/L (3.5-5.1); Sodium 139 mmol/L (136-145)
[2020-07-25] MEDS: Budesonide 0.5 MG/2 ML NEB NEB SCH (07:05)
[2020-07-25] MEDS: Arformoterol 15 MCG/2 ML NEB NEB SCH (07:05)
[2020-07-25] MEDS: Enoxaparin Sodium 40 MG/0.4 ML SYRINGE SC SCH (09:04)
[2020-07-25] MEDS: levETIRAcetam 500 MG TAB PO SCH (09:05)
[2020-07-25] MEDS: predniSONE 5 MG TAB PO SCH (09:05)
[2020-07-25 11:56] VITALS: BP 133/80; TEMP 97.4
== END 2020-07-25 13:20 | disposition home or self-care (01) | DRG 885 ==
LOC: ERS 12:26 → 2SE 16:29
PROVIDERS: ADMIT Internal Medicine; ATTEND Internal Medicine
DX: F20.9 Schizophrenia, unspecified (principal); R00.0 Tachycardia, unspecified; I10 Essential (primary) hypertension; J44.9 Chronic obstructive pulmonary disease, unspecified; F03.90 Unspecified dementia, unspecified severity, without behavioral disturbance, psychotic disturbance, mood disturbance, and anxiety; M81.0 Age-related osteoporosis without current pathological fracture; Z66 Do not resuscitate; I49.1 Atrial premature depolarization; Z88.2 Allergy status to sulfonamides; Z88.5 Allergy status to narcotic agent; Z79.2 Long term (current) use of antibiotics; Z88.1 Allergy status to other antibiotic agents; Z87.891 Personal history of nicotine dependence; Z79.51 Long term (current) use of inhaled steroids; Z90.49 Acquired absence of other specified parts of digestive tract
CPT/HCPCS: 36415; 36416; 70450; 71045; 71275; 80048; 80053; 83735; 84443; 84484; 85025; 85379; 87635; 93005; 93306; 94640; 94760; J1650; J2060; J7512; J7626; Q9967; U0003; U0005

== ENCOUNTER 2021-10-16 16:27 | Emergency (ER) | payer OTHER, MEDICARE, MEDICAID ==
[2021-10-16] MEDS ORDERED: Bacitracin 1 PK ONE (16:43)
[2021-10-16] MEDS ORDERED: Lidocaine 1% w/Epinephrine 1:100K 20 ML VIAL ONE (16:43)
[2021-10-16] MEDS ORDERED: Boostrix 0.5 ML (Tdap) VIAL ONE (17:42)
== END 2021-10-16 18:05 | disposition home or self-care (01) ==
LOC: ERS 16:27
DX: S61.215A Laceration without foreign body of left ring finger without damage to nail, initial encounter (principal); S61.217A Laceration without foreign body of left little finger without damage to nail, initial encounter; S51.011A Laceration without foreign body of right elbow, initial encounter; S81.011A Laceration without foreign body, right knee, initial encounter; S91.012A Laceration without foreign body, left ankle, initial encounter; I10 Essential (primary) hypertension; J44.9 Chronic obstructive pulmonary disease, unspecified; M81.0 Age-related osteoporosis without current pathological fracture; J45.909 Unspecified asthma, uncomplicated; F03.90 Unspecified dementia, unspecified severity, without behavioral disturbance, psychotic disturbance, mood disturbance, and anxiety; W01.110A Fall on same level from slipping, tripping and stumbling with subsequent striking against sharp glass, initial encounter; Z23 Encounter for immunization; Z86.718 Personal history of other venous thrombosis and embolism; Z79.899 Other long term (current) drug therapy
CPT/HCPCS: 12004; 90471; 90715

== ENCOUNTER 2022-02-06 12:19 | Outpatient (CLI) | payer MEDICARE, MEDICAID | END 2022-02-06 12:20 | disposition home or self-care (01) | LOC: RAD 12:19 | PROVIDERS: ATTEND Internal Medicine Critical Care Medicine | DX: R06.00 Dyspnea, unspecified (principal) | CPT/HCPCS: 71046 ==

== ENCOUNTER 2022-04-01 16:52 | Emergency (ER) | payer MEDICARE, OTHER ==
[2022-04-01] MEDS ORDERED: Ondansetron PF 4 MG/2 ML Vial ONE (17:27)
[2022-04-01 17:35] LABS: #Lymphocytes 0.3 thou/uL (1.20-3.40); #Monocytes 0.7 thou/uL (0.11-0.59); #Neutrophils 17.4 thou/uL (1.40-6.50); %Eosinophils 0.1 % (0.0-10.0); %Lymphocytes 1.9 % (21.0-51.0); %Monocytes 3.7 % (0.0-10.0); %Neutrophils 94.3 % (42.0-75.0); Hemoglobin 14.4 g/dL (12.0-16.0); Mean Corpuscular HGB CONC 34.2 g/dL (32.0-36.0); Mean Corpuscular Hemoglobin 32.6 pg (27.0-31.0); Mean Corpuscular Volume 95.4 fl (78.0-98.0); Mean Platelet Volume 6.7 fL (7.4-10.4); Platelet Count 182 10x3/uL (130-400); RBC Distribution Width 12.4 % (11.5-14.5); Red Blood Cell (RBC) Count 4.42 mill/uL (4.20-5.40); White Blood Cell (WBC) Count 18.4 10x3/uL (4.8-10.8)
[2022-04-01 17:55] LABS: ALT (SGPT) 16 U/L (8-55); AST (SGOT) 28 U/L (5-34); Albumin 3.7 g/dL (3.4-4.8); Alkaline Phosphatase 66 U/L (40-110); Anion Gap 15 mmol/L (10-20); BUN (Urea Nitrogen) 13 mg/dL (9.8-20.1); Bilirubin, Total 2.1 mg/dL (0.2-1.2); Calc. Creatinine Clearance 0 mL/min (70-130); Calcium 9.6 mg/dL (7.8-10.44); Carbon Dioxide 27 mmol/L (23-31); Chloride 98 mmol/L (98-107); Estimated GFR 73; Globulin 2.2 g/dL (2.4-3.5); Glucose 137 mg/dL (83-110); Potassium 4.4 mmol/L (3.5-5.1); Protein, Total 5.9 g/dL (5.8-8.1); Sodium 136 mmol/L (136-145)
[2022-04-01 18:19] LABS: Bacteria/HPF 1+ HPF (None Seen); Bilirubin Negative (Negative); Blood, Urine Trace (Negative); Clarity Clear (Clear); Glucose, Urine (Dipstick) Normal (Negative); Ketone, Urine Negative (Negative); Leukocyte Negative Leu/uL (Negative); Nitrite 2+ (Negative); Protein, Urine (Dipstick) Negative (Neg-Trace); RBC/HPF 0-3 HPF (0-3); Specific Gravity, Urine 1.007 (1.002-1.036); Squamous Epithelial None Seen HPF (0-3); Urobilinogen Normal mg/dL (Less than 2); WBC/HPF 0-3 HPF (0-3); pH, Urine 6.5 (5.0-9.0)
[2022-04-01] MEDS ORDERED: Nitrofurantoin Macrocrystal 50 MG CAP PO SCH (19:45)
== END 2022-04-01 20:33 | disposition home or self-care (01) ==
LOC: ERS 16:52
DX: S34.139A Unspecified injury to sacral spinal cord, initial encounter (principal); S32.049A Unspecified fracture of fourth lumbar vertebra, initial encounter for closed fracture; S32.592A Other specified fracture of left pubis, initial encounter for closed fracture; J44.9 Chronic obstructive pulmonary disease, unspecified; I10 Essential (primary) hypertension; W18.30XA Fall on same level, unspecified, initial encounter
CPT/HCPCS: 36415; 51701; 70450; 71045; 72170; 74177; 80053; 81003; 81015; 83605; 84443; 85025; 87040; 87077; 87086; 87186; 93005; 96374; J2405; Q9967

== ENCOUNTER 2022-07-10 17:09 | Emergency (ER) | payer MEDICARE, OTHER ==
[~2022-07-10 17:09] MED LIST changes: -Iopamidol-370 76% 500 ML 1 ML ONE; +Iopamidol-370 76% 500 ML MDV (1 ML CHARGE) ONE
[2022-07-10 17:49] LABS: #Lymphocytes 0.4 thou/uL (1.20-3.40); #Monocytes 0.1 thou/uL (0.11-0.59); %Basophils 0.4 % (0.0-1.0); %Eosinophils 0.4 % (0.0-10.0); %Lymphocytes 4.3 % (21.0-51.0); %Monocytes 1.6 % (0.0-10.0); %Neutrophils 93.3 % (42.0-75.0); Hemoglobin 16.2 g/dL (12.0-16.0); Mean Corpuscular HGB CONC 34.3 g/dL (32.0-36.0); Mean Corpuscular Hemoglobin 32.4 pg (27.0-31.0); Mean Corpuscular Volume 94.4 fl (78.0-98.0); Mean Platelet Volume 6.6 fL (7.4-10.4); Platelet Count 215 10x3/uL (130-400); RBC Distribution Width 12.7 % (11.5-14.5); White Blood Cell (WBC) Count 8.6 10x3/uL (4.8-10.8)
[2022-07-10 18:24] LABS: ALT (SGPT) 10 U/L (8-55); AST (SGOT) 15 U/L (5-34); Acetaminophen Less than 10.0 mcg/mL (10.0-30.0); Albumin 4.1 g/dL (3.4-4.8); Alcohol Less than 10 mg/dL (Less than 10); Alkaline Phosphatase 91 U/L (40-110); Anion Gap 14 mmol/L (10-20); BUN (Urea Nitrogen) 17 mg/dL (9.8-20.1); Calc. Creatinine Clearance 0 mL/min (70-130); Calcium 9.7 mg/dL (7.8-10.44); Carbon Dioxide 26 mmol/L (23-31); Chloride 105 mmol/L (98-107); Estimated GFR 74; Globulin 2.4 g/dL (2.4-3.5); Glucose 137 mg/dL (83-110); Potassium 4.6 mmol/L (3.5-5.1); Protein, Total 6.5 g/dL (5.8-8.1); Salicylate Less than 8.0 mg/dL (15.0-30.0); Sodium 140 mmol/L (136-145)
[2022-07-10 22:27] LABS: Bacteria/HPF 4+ HPF (None Seen); Bilirubin Negative (Negative); Blood, Urine Negative (Negative); Clarity Clear (Clear); Glucose, Urine (Dipstick) Normal (Negative); Ketone, Urine Negative (Negative); Leukocyte 500 Leu/uL (Negative); Nitrite 2+ (Negative); Protein, Urine (Dipstick) Negative (Neg-Trace); RBC/HPF 0-3 HPF (0-3); Renal Epithelial 0-3 HPF (None Seen); Specific Gravity, Urine 1.012 (1.002-1.036); Squamous Epithelial 0-3 HPF (0-3); Urobilinogen Normal mg/dL (Less than 2); pH, Urine 5.5 (5.0-9.0)
== END 2022-07-11 02:04 | disposition home or self-care (01) ==
LOC: ERS 17:09
DX: N39.0 Urinary tract infection, site not specified (principal); J44.9 Chronic obstructive pulmonary disease, unspecified; I10 Essential (primary) hypertension; Z87.891 Personal history of nicotine dependence; Z79.899 Other long term (current) drug therapy
CPT/HCPCS: 36415; 71045; 74177; 80053; 80307; 81003; 81015; 83605; 84443; 85025; 93005; Q9967

== ENCOUNTER 2022-11-17 14:31 | Inpatient (IN) | payer MEDICARE, MEDICAID ==
[2022-11-17 16:14] LABS: #Monocytes 0.2 thou/uL (0.11-0.59); #Neutrophils 6.7 thou/uL (1.40-6.50); %Basophils 0.4 % (0.0-1.0); %Lymphocytes 4.7 % (21.0-51.0); %Monocytes 2.1 % (0.0-10.0); %Neutrophils 92.4 % (42.0-75.0); Hematocrit 44.8 % (36.0-47.0); Mean Corpuscular HGB CONC 33.5 g/dL (32.0-36.0); Mean Corpuscular Hemoglobin 31.8 pg (27.0-31.0); Mean Corpuscular Volume 95.1 fl (78.0-98.0); Mean Platelet Volume 9.1 fL (7.4-10.4); Platelet Count 190 10x3/uL (130-400); RBC Distribution Width 12.7 % (11.5-14.5); Red Blood Cell (RBC) Count 4.71 mill/uL (4.20-5.40); White Blood Cell (WBC) Count 7.2 10x3/uL (4.8-10.8)
[2022-11-17 16:38] LABS: ALT (SGPT) 14 U/L (8-55); AST (SGOT) 18 U/L (5-34); Albumin 3.9 g/dL (3.4-4.8); Alkaline Phosphatase 72 U/L (40-110); Anion Gap 12 mmol/L (10-20); BUN (Urea Nitrogen) 16 mg/dL (9.8-20.1); Bilirubin, Total 0.9 mg/dL (0.2-1.2); Calc. Creatinine Clearance 0 mL/min (70-130); Calcium 9.4 mg/dL (7.8-10.44); Carbon Dioxide 26 mmol/L (23-31); Chloride 105 mmol/L (98-107); Estimated GFR 70; Globulin 2.4 g/dL (2.4-3.5); Glucose 116 mg/dL (83-110); Potassium 4.4 mmol/L (3.5-5.1); Protein, Total 6.3 g/dL (5.8-8.1); Sodium 139 mmol/L (136-145)
[2022-11-17 16:41] LABS: Troponin I Less than 0.010 ng/mL (< 0.028)
[2022-11-17 17:08] LABS: Bacteria/HPF None Seen HPF (None Seen); Bilirubin Negative (Negative); Blood, Urine Negative (Negative); CAUTI Indications for Culture Alt mental st,lethar; Clarity Turbid (Clear); Glucose, Urine (Dipstick) Normal (Negative); Ketone, Urine Negative (Negative); Leukocyte Negative Leu/uL (Negative); Nitrite Negative (Negative); Protein, Urine (Dipstick) 30 mg/dL (Neg-Trace); RBC/HPF 0-3 HPF (0-3); Squamous Epithelial 0-3 HPF (0-3); Urobilinogen Normal mg/dL (Less than 2); WBC/HPF 0-3 HPF (0-3); pH, Urine 5.5 (5.0-9.0)
[2022-11-17 17:10] LABS: Urine Culture Reflex No No
[2022-11-17] MEDS ORDERED: Ondansetron ODT 4 MG TAB SL PRN (21:45)
[2022-11-17] MEDS ORDERED: Ondansetron PF 4 MG/2 ML Vial IVP PRN (21:45)
[2022-11-17] MEDS ORDERED: Acetaminophen 325 MG TAB PO PRN (21:45)
[2022-11-18 00:18] VITALS: BMI 15.9
[2022-11-18] MEDS ORDERED: Acetaminophen 650 MG Suppository PR PRN (07:04)
[2022-11-18] MEDS ORDERED: Ipratropium/Albuterol 3 ML NEB NEB PRN (07:16)
[2022-11-18 07:48] LABS: #Eosinphils 0.1 thou/uL (0.0-0.7); #Monocytes 0.5 thou/uL (0.11-0.59); #Neutrophils 4.2 thou/uL (1.40-6.50); %Basophils 0.6 % (0.0-1.0); %Eosinophils 1.9 % (0.0-10.0); %Lymphocytes 21.2 % (21.0-51.0); %Monocytes 8.3 % (0.0-10.0); %Neutrophils 67.7 % (42.0-75.0); Hematocrit 40.1 % (36.0-47.0); Hemoglobin 13.4 g/dL (12.0-16.0); Mean Corpuscular HGB CONC 33.4 g/dL (32.0-36.0); Mean Corpuscular Hemoglobin 31.8 pg (27.0-31.0); Mean Platelet Volume 9.1 fL (7.4-10.4); Platelet Count 183 10x3/uL (130-400); RBC Distribution Width 12.7 % (11.5-14.5); Red Blood Cell (RBC) Count 4.22 mill/uL (4.20-5.40); White Blood Cell (WBC) Count 6.2 10x3/uL (4.8-10.8)
[2022-11-18 08:07] LABS: Phosphorus 4.2 mg/dL (2.3-4.7)
[2022-11-18 08:15] LABS: Anion Gap 12 mmol/L (10-20); BUN (Urea Nitrogen) 13 mg/dL (9.8-20.1); Calc. Creatinine Clearance 38 mL/min (70-130); Calcium 8.4 mg/dL (7.8-10.44); Carbon Dioxide 26 mmol/L (23-31); Chloride 105 mmol/L (98-107); Estimated GFR 85; Glucose 86 mg/dL (83-110); Magnesium 2.1 mg/dL (1.6-2.6); Potassium 3.8 mmol/L (3.5-5.1); Sodium 139 mmol/L (136-145)
[2022-11-18] MEDS: Ipratropium/Albuterol 3 ML NEB NEB SCH (18:36)
[2022-11-18] MEDS: PALIPERIDONE 3 MG PO SCH ×2 (20:18→20:23)
[2022-11-18] MEDS: Donepezil HCl 5 MG TAB PO SCH (20:23)
[2022-11-18] MEDS: Lorazepam 1 MG TAB PO SCH (20:23)
[2022-11-18] MEDS: lamoTRIgine 25 MG TAB PO SCH (20:24)
[2022-11-18] MEDS ORDERED: Non-Formulary Item 1 EACH (Lamotrigine [Lamictal] 150 MG Tablet) PO SCH (21:00)
[2022-11-18] MEDS ORDERED: PALIPERIDONE 3 MG PO SCH (21:00)
[2022-11-18] MEDS ORDERED: Ipratropium/Albuterol 3 ML NEB NEB SCH (21:00)
[2022-11-19] MEDS: Ipratropium/Albuterol 3 ML NEB NEB SCH ×2 (07:50→18:51)
[2022-11-19] MEDS: lamoTRIgine 25 MG TAB PO SCH ×2 (08:10→20:48)
[2022-11-19] MEDS: Lorazepam 0.5 MG TAB PO SCH (08:10)
[2022-11-19] MEDS: predniSONE 5 MG TAB PO SCH (08:10)
[2022-11-19] MEDS: PALIPERIDONE 3 MG PO SCH ×4 (08:10→20:53)
[2022-11-19] MEDS ORDERED: Lorazepam 1 MG TAB PO SCH (09:00)
[2022-11-19] MEDS ORDERED: Non-Formulary Item 1 EACH (Prednisone [Prednisone] 10 MG Tablet) PO SCH (09:00)
[2022-11-19] MEDS: Donepezil HCl 5 MG TAB PO SCH (20:47)
[2022-11-19] MEDS: Lorazepam 1 MG TAB PO SCH (20:48)
[2022-11-20] MEDS: PALIPERIDONE 3 MG PO SCH ×4 (08:26→20:20)
[2022-11-20] MEDS: predniSONE 5 MG TAB PO SCH (08:56)
[2022-11-20] MEDS: Lorazepam 0.5 MG TAB PO SCH (08:56)
[2022-11-20] MEDS: lamoTRIgine 25 MG TAB PO SCH ×2 (08:56→20:14)
[2022-11-20] MEDS: Ipratropium/Albuterol 3 ML NEB NEB SCH ×2 (10:34→18:18)
[2022-11-20] MEDS: Lorazepam 1 MG TAB PO SCH (20:14)
[2022-11-20] MEDS: Donepezil HCl 5 MG TAB PO SCH (20:14)
[2022-11-21] MEDS: Ipratropium/Albuterol 3 ML NEB NEB SCH ×2 (06:56→18:30)
[2022-11-21] MEDS: Lorazepam 0.5 MG TAB PO SCH (08:43)
[2022-11-21] MEDS: predniSONE 5 MG TAB PO SCH (08:43)
[2022-11-21] MEDS: lamoTRIgine 25 MG TAB PO SCH ×2 (08:43→20:00)
[2022-11-21] MEDS: PALIPERIDONE 3 MG PO SCH ×4 (08:43→20:00)
[2022-11-21] MEDS: Donepezil HCl 5 MG TAB PO SCH (20:00)
[2022-11-21] MEDS: Lorazepam 1 MG TAB PO SCH (20:00)
[2022-11-22] MEDS: Ipratropium/Albuterol 3 ML NEB NEB SCH (07:12)
[2022-11-22] MEDS: PALIPERIDONE 3 MG PO SCH ×2 (08:16→08:17)
[2022-11-22] MEDS: lamoTRIgine 25 MG TAB PO SCH (08:17)
[2022-11-22] MEDS: Lorazepam 0.5 MG TAB PO SCH (08:17)
[2022-11-22] MEDS: predniSONE 5 MG TAB PO SCH (08:17)
[2022-11-22 16:12] VITALS: BP 124/80; TEMP 98.5
== END 2022-11-22 16:53 | DRG 884 ==
LOC: ERS 14:31 → T4-B 21:25 → OBSVTOIN 11-19 16:50
PROVIDERS: ADMIT Student in an Organized Health Care Education/Training Program; ATTEND Internal Medicine
DX: F03.90 Unspecified dementia, unspecified severity, without behavioral disturbance, psychotic disturbance, mood disturbance, and anxiety (principal); F20.0 Paranoid schizophrenia; R64 Cachexia; Z68.1 Body mass index [BMI] 19.9 or less, adult; E44.0 Moderate protein-calorie malnutrition; J44.9 Chronic obstructive pulmonary disease, unspecified; I10 Essential (primary) hypertension; M81.0 Age-related osteoporosis without current pathological fracture; R13.10 Dysphagia, unspecified; Z88.1 Allergy status to other antibiotic agents; Z88.5 Allergy status to narcotic agent; Z88.2 Allergy status to sulfonamides; Z79.899 Other long term (current) drug therapy; Z87.891 Personal history of nicotine dependence; Z98.890 Other specified postprocedural states
CPT/HCPCS: 36415; 36416; 51701; 70450; 71045; 80048; 80053; 81001; 83605; 83735; 84100; 84484; 85025; 87086; 93005; 94640; G0378; J7512; J7620

== ENCOUNTER 2022-12-19 02:57 | Inpatient (IN) | payer MEDICARE, MEDICAID ==
[2022-12-19] MEDS ORDERED: fentaNYL 50 mcg/mL 1 mL Vial ONE ×2 (03:16→04:27)
[2022-12-19 03:51] LABS: #Monocytes 0.8 thou/uL (0.11-0.59); #Neutrophils 10.7 thou/uL (1.40-6.50); %Basophils 0.2 % (0.0-1.0); %Lymphocytes 4.6 % (21.0-51.0); %Monocytes 6.4 % (0.0-10.0); Hematocrit 41.2 % (36.0-47.0); Hemoglobin 13.8 g/dL (12.0-16.0); Mean Corpuscular HGB CONC 33.5 g/dL (32.0-36.0); Mean Corpuscular Volume 95.6 fl (78.0-98.0); Mean Platelet Volume 9.1 fL (7.4-10.4); Platelet Count 168 10x3/uL (130-400); RBC Distribution Width 12.9 % (11.5-14.5); Red Blood Cell (RBC) Count 4.31 mill/uL (4.20-5.40); White Blood Cell (WBC) Count 12.2 10x3/uL (4.8-10.8)
[2022-12-19 04:17] LABS: ALT (SGPT) 27 U/L (8-55); AST (SGOT) 31 U/L (5-34); Albumin 3.7 g/dL (3.4-4.8); Alkaline Phosphatase 68 U/L (40-110); Anion Gap 13 mmol/L (10-20); BUN (Urea Nitrogen) 21 mg/dL (9.8-20.1); Bilirubin, Total 0.8 mg/dL (0.2-1.2); CK (CPK) 340 U/L (29-168); Calc. Creatinine Clearance 0 mL/min (70-130); Carbon Dioxide 28 mmol/L (23-31); Chloride 106 mmol/L (98-107); Estimated GFR 63; Globulin 2.3 g/dL (2.4-3.5); Glucose 115 mg/dL (83-110); Lipase 23 U/L (8-78); Magnesium 2.1 mg/dL (1.6-2.6); Potassium 3.5 mmol/L (3.5-5.1); Sodium 143 mmol/L (136-145)
[2022-12-19] MEDS ORDERED: Dextrose 50% Abboject 50 ML SYRINGE SLOW IVP PRN (06:00)
[2022-12-19] MEDS ORDERED: Morphine 2 MG/ML VIAL SLOW IVP PRN (06:00)
[2022-12-19] MEDS ORDERED: Dextrose 5% in Water 1,000 ML IV PRN (06:00)
[2022-12-19] MEDS ORDERED: Sodium Chloride 0.9% 1,000 ML IV SCH (06:00)
[2022-12-19] MEDS ORDERED: Ipratropium/Albuterol 3 ML NEB NEB PRN (06:00)
[2022-12-19] MEDS ORDERED: Glucagon 1 MG/ML KIT IM PRN (06:00)
[2022-12-19] MEDS ORDERED: hydrALAZINE 20 MG/ML VIAL SLOW IVP PRN (06:00)
[2022-12-19] MEDS ORDERED: Ondansetron ODT 4 MG TAB PO PRN (06:00)
[2022-12-19] MEDS ORDERED: Ondansetron PF 4 MG/2 ML Vial IVP PRN (06:00)
[2022-12-19] MEDS ORDERED: Cyclobenzaprine 10 MG TAB PO PRN (06:04)
[2022-12-19] MEDS: Acetaminophen 500 MG TAB PO SCH ×3 (06:25→18:21)
[2022-12-19] MEDS: Ketorolac Tromethamine 30 MG/ML VIAL IVP SCH ×3 (06:25→18:20)
[2022-12-19] MEDS ORDERED: Ketorolac Tromethamine 30 MG/ML VIAL ONE ×2 (06:31→13:14)
[2022-12-19] MEDS ORDERED: Acetaminophen 500 MG TAB ONE ×2 (06:31→13:14)
[2022-12-19 07:26] LABS: Lactic Acid 1.3 mmol/L (0.5-2.2)
[2022-12-19 07:29] LABS: Phosphorus 2.7 mg/dL (2.3-4.7)
[2022-12-19 07:31] LABS: Magnesium 2.2 mg/dL (1.6-2.6)
[2022-12-19] MEDS ORDERED: Clindamycin/D5W 900 MG in Premix Bag 1 BAG IVPB SCH (07:45)
[2022-12-19] MEDS ORDERED: Clindamycin/D5W 600 MG in Premix Bag 1 BAG IVPB SCH (08:30)
[2022-12-19] MEDS ORDERED: Cyclobenzaprine 10 MG TAB ONE (09:52)
[2022-12-19] MEDS ORDERED: Famotidine 20 MG TAB ONE (09:52)
[2022-12-19] MEDS: Senokot S 8.6-50 MG TAB PO SCH ×2 (10:01→22:30)
[2022-12-19] MEDS: Polyethylene Glycol 3350 17 GM Packet PO SCH (10:01)
[2022-12-19] MEDS: Famotidine 20 MG TAB PO SCH ×2 (10:01→22:30)
[2022-12-19] MEDS: Donepezil HCl 5 MG TAB PO SCH (22:30)
[2022-12-20] MEDS: Acetaminophen 500 MG TAB PO SCH ×5 (01:25→23:33)
[2022-12-20] MEDS: Ketorolac Tromethamine 30 MG/ML VIAL IVP SCH ×5 (01:26→23:33)
[2022-12-20 06:00] LABS: #Eosinphils 0.2 thou/uL (0.0-0.7); #Monocytes 0.4 thou/uL (0.11-0.59); #Neutrophils 7.2 thou/uL (1.40-6.50); %Basophils 0.2 % (0.0-1.0); %Eosinophils 1.8 % (0.0-10.0); %Lymphocytes 4.3 % (21.0-51.0); %Monocytes 4.3 % (0.0-10.0); Hematocrit 38.6 % (36.0-47.0); Hemoglobin 12.6 g/dL (12.0-16.0); Mean Corpuscular HGB CONC 32.6 g/dL (32.0-36.0); Mean Corpuscular Hemoglobin 31.6 pg (27.0-31.0); Mean Corpuscular Volume 96.7 fl (78.0-98.0); Mean Platelet Volume 9.1 fL (7.4-10.4); Platelet Count 122 10x3/uL (130-400); RBC Distribution Width 13.2 % (11.5-14.5); Red Blood Cell (RBC) Count 3.99 mill/uL (4.20-5.40); White Blood Cell (WBC) Count 8.1 10x3/uL (4.8-10.8)
[2022-12-20 06:20] LABS: Anion Gap 11 mmol/L (10-20); BUN (Urea Nitrogen) 21 mg/dL (9.8-20.1); Calc. Creatinine Clearance 47 mL/min (70-130); Calcium 8.1 mg/dL (7.8-10.44); Carbon Dioxide 27 mmol/L (23-31); Chloride 108 mmol/L (98-107); Estimated GFR 91; Glucose 70 mg/dL (83-110); Potassium 3.6 mmol/L (3.5-5.1); Sodium 142 mmol/L (136-145)
[2022-12-20] MEDS ORDERED: Dextrose 5% in Water 1,000 ML IV SCH (08:00)
[2022-12-20] MEDS: Polyethylene Glycol 3350 17 GM Packet PO SCH (08:52)
[2022-12-20] MEDS: Senokot S 8.6-50 MG TAB PO SCH ×2 (08:52→21:19)
[2022-12-20] MEDS ORDERED: Clindamycin/D5W 600 mg/50 ml Premix Bag ONE (12:58)
[2022-12-20] MEDS ORDERED: fentaNYL PF 100 MCG/2 ML SYRINGE ONE (13:10)
[2022-12-20] MEDS ORDERED: Ketamine 50 MG/ML (10ML VIAL) ONE (13:10)
[2022-12-20] MEDS ORDERED: Dexamethasone 20 MG/5 ML VIAL ONE (13:34)
[2022-12-20] MEDS ORDERED: Albuterol HFA (OR) 200 PUFF INH ONE (13:34)
[2022-12-20] MEDS ORDERED: Glycopyrrolate 0.2 MG/ML 5 ML SYRINGE ONE (13:34)
[2022-12-20] MEDS ORDERED: Lidocaine 1% PF 5 ML VIAL ONE (13:34)
[2022-12-20] MEDS ORDERED: PHENYLEPHRINE-NS 100 MCG/ML 10 ML SYRINGE ONE (13:34)
[2022-12-20] MEDS ORDERED: PROPOFOL 200 MG/20 ML VIAL ONE (13:34)
[2022-12-20] MEDS ORDERED: Ondansetron PF 4 MG/2 ML Vial ONE (13:34)
[2022-12-20] MEDS ORDERED: NEOSTIGMINE 3 MG/3 ML SYR 3 MG/3 ML SYRINGE ONE (13:34)
[2022-12-20] MEDS ORDERED: Rocuronium Bromide 10 MG/ML (10ML VIAL) ONE (13:34)
[2022-12-20] MEDS ORDERED: CEFAZOLIN 2 GM in Sodium Chloride 0.9% 100 ML IVPB SCH (13:45)
[2022-12-20 14:11] VITALS: BMI 18.6
[2022-12-20] MEDS ORDERED: SUGAMMADEX SODIUM 200 MG/2 ML VIAL ONE (14:37)
[2022-12-20] MEDS ORDERED: Ondansetron HCl/PF 4 MG/2 ML Vial IVP PRN (14:53)
[2022-12-20] MEDS ORDERED: Promethazine HCl 25 MG/ML VIAL IM PRN (14:53)
[2022-12-20 18:42] LABS: Bacteria/HPF None Seen HPF (None Seen); Bilirubin Negative (Negative); Blood, Urine Negative (Negative); Clarity Clear (Clear); Glucose, Urine (Dipstick) Normal (Negative); Ketone, Urine 40 mg/dL (Negative); Leukocyte Negative Leu/uL (Negative); Nitrite Negative (Negative); Protein, Urine (Dipstick) 30 mg/dL (Neg-Trace); RBC/HPF 0-3 HPF (0-3); Specific Gravity, Urine 1.026 (1.002-1.036); Squamous Epithelial None Seen HPF (0-3); Urobilinogen Normal mg/dL (Less than 2); WBC/HPF 0-3 HPF (0-3); pH, Urine 5.5 (5.0-9.0)
[2022-12-20] MEDS: Famotidine 20 MG TAB PO SCH (21:18)
[2022-12-20] MEDS: Donepezil HCl 5 MG TAB PO SCH (21:18)
[2022-12-21] MEDS: Ketorolac Tromethamine 30 MG/ML VIAL IVP SCH ×3 (05:40→17:08)
[2022-12-21] MEDS: Acetaminophen 500 MG TAB PO SCH ×3 (05:41→17:08)
[2022-12-21 06:44] LABS: #Monocytes 0.3 thou/uL (0.11-0.59); #Neutrophils 7.9 thou/uL (1.40-6.50); %Basophils 0.1 % (0.0-1.0); %Eosinophils 0.2 % (0.0-10.0); %Lymphocytes 3.2 % (21.0-51.0); Hematocrit 33.3 % (36.0-47.0); Hemoglobin 11.2 g/dL (12.0-16.0); Mean Corpuscular HGB CONC 33.6 g/dL (32.0-36.0); Mean Corpuscular Hemoglobin 31.4 pg (27.0-31.0); Mean Corpuscular Volume 93.3 fl (78.0-98.0); Mean Platelet Volume 9.3 fL (7.4-10.4); Platelet Count 129 10x3/uL (130-400); Red Blood Cell (RBC) Count 3.57 mill/uL (4.20-5.40); White Blood Cell (WBC) Count 8.5 10x3/uL (4.8-10.8)
[2022-12-21 06:55] LABS: Anion Gap 7 mmol/L (10-20); BUN (Urea Nitrogen) 16 mg/dL (9.8-20.1); Calc. Creatinine Clearance 42 mL/min (70-130); Calcium 8.1 mg/dL (7.8-10.44); Carbon Dioxide 29 mmol/L (23-31); Chloride 101 mmol/L (98-107); Estimated GFR 88; Glucose 169 mg/dL (83-110); Magnesium 2.1 mg/dL (1.6-2.6); Phosphorus 2.9 mg/dL (2.3-4.7); Potassium 4.3 mmol/L (3.5-5.1); Sodium 133 mmol/L (136-145)
[2022-12-21] MEDS: Polyethylene Glycol 3350 17 GM Packet PO SCH (08:20)
[2022-12-21] MEDS: Senokot S 8.6-50 MG TAB PO SCH ×2 (08:20→20:47)
[2022-12-21] MEDS: traMADol HCl 50 MG TAB PO PRN ×2 (10:29→16:21)
[2022-12-21] MEDS ORDERED: guaiFENesin ER 600 MG TAB PO SCH (18:00)
[2022-12-21] MEDS: Donepezil HCl 5 MG TAB PO SCH (20:43)
[2022-12-21] MEDS: Famotidine 20 MG TAB PO SCH (20:46)
[2022-12-21] MEDS ORDERED: Donepezil HCl 5 MG TAB PO SCH (21:00)
[2022-12-22] MEDS: Acetaminophen 500 MG TAB PO SCH ×3 (00:19→12:20)
[2022-12-22] MEDS: Ketorolac Tromethamine 30 MG/ML VIAL IVP SCH ×3 (00:19→12:19)
[2022-12-22] MEDS ORDERED: Aspirin 81 mg Enteric Coated Tablet PO SCH (09:00)
[2022-12-22] MEDS ORDERED: guaiFENesin ER 600 MG TAB PO SCH (09:00)
[2022-12-22] MEDS ORDERED: Senokot S 8.6-50 MG TAB PO SCH (09:00)
[2022-12-22] MEDS ORDERED: Polyethylene Glycol 3350 17 GM Packet PO SCH (09:00)
[2022-12-22] MEDS ORDERED: predniSONE 5 MG TAB PO SCH (09:00)
[2022-12-22] MEDS: lamoTRIgine 100 MG TAB PO SCH ×2 (09:49→12:20)
[2022-12-22] MEDS: Polyethylene Glycol 3350 17 GM Packet PO SCH (10:38)
[2022-12-22] MEDS: Senokot S 8.6-50 MG TAB PO SCH (10:38)
[2022-12-22 12:40] VITALS: TEMP 98.4
[2022-12-22] MEDS ORDERED: ESTROGEN TOP SCH (13:00)
[2022-12-22 14:49] VITALS: BP 113/63
[2022-12-23] MEDS ORDERED: PALIPERIDONE 3 MG PO SCH ×2 (09:00)
[2022-12-28] MEDS ORDERED: Alendronate Sodium 70 mg Tablet PO SCH (09:00)
== END 2022-12-22 16:34 | DRG 481 ==
LOC: ERS 02:57 → ERHOLD 04:45 → SURG B 14:21
PROVIDERS: ADMIT Surgery; ATTEND Surgery
PROC: 0QS604Z Reposition Right Upper Femur with Internal Fixation Device, Open Approach (ICD-10-PCS; principal; 2022-12-20)
DX: S72.141A Displaced intertrochanteric fracture of right femur, initial encounter for closed fracture (principal); F20.0 Paranoid schizophrenia; F03.90 Unspecified dementia, unspecified severity, without behavioral disturbance, psychotic disturbance, mood disturbance, and anxiety; J44.9 Chronic obstructive pulmonary disease, unspecified; I10 Essential (primary) hypertension; M81.0 Age-related osteoporosis without current pathological fracture; W19.XXXA Unspecified fall, initial encounter; E16.2 Hypoglycemia, unspecified; Z87.891 Personal history of nicotine dependence; Z88.1 Allergy status to other antibiotic agents; Z88.5 Allergy status to narcotic agent; Z98.890 Other specified postprocedural states; Z88.2 Allergy status to sulfonamides; Z86.718 Personal history of other venous thrombosis and embolism; Y92.129 Unspecified place in nursing home as the place of occurrence of the external cause; Z79.01 Long term (current) use of anticoagulants
CPT/HCPCS: 36415; 36416; 70450; 71045; 72125; 72192; 80048; 80053; 81001; 82550; 83605; 83690; 83735; 83880; 84100; 84484; 85025; 93005; 96374; 96376; C1713; J1100; J1885; J2272; J2405; J2704; J3010; J3490; J7050; J7070; J7512; Q0162

== ENCOUNTER 2023-05-03 03:07 | Inpatient (IN) | payer MEDICARE, MEDICAID ==
[2023-05-03] MEDS ORDERED: Ipratropium/Albuterol 3 ML NEB ONE ×2 (03:15→08:06)
[2023-05-03] MEDS ORDERED: Albuterol 2.5 MG (3 mL) NEB ONE (03:15)
[2023-05-03] MEDS ORDERED: NOREPINEPHRINE 8 MG/250 ML-D5W 250 ML ONE ×2 (03:17→08:43)
[2023-05-03] MEDS ORDERED: Acetaminophen 325 MG Suppository ONE (03:28)
[2023-05-03] MEDS ORDERED: Cefepime 2 GM VIAL ONE (03:28)
[2023-05-03] MEDS ORDERED: Magnesium 2 GM/50 ML(in water) 2 GM in Premix 1 BAG IVPB SCH (03:30)
[2023-05-03] MEDS ORDERED: Vancomycin (BATCH) 2 GM in Premix 1 BAG IVPB SCH (03:30)
[2023-05-03 03:32] LABS: Actual Bicarbonate (HCO3a) 25.3 mEq/L (22-28); Analyzer IN Cardio ER; Base Excess (BEa) -0.4 mEq/L (-2.0 to +3.0); CO2 Tension 45.4 mmHg (35.0-45.0); Calcium, Ionized (arterial) 1.07 mmol/L (1.12-1.30); Carboxyhemoglobin (COHb) 0.7 gm% (0.0-3.0); Hematocrit-ABG 37 % (36.0-47.0); Hemoglobin (Hb) 12.7 g/dL (12.0-16.0); O2 Tension (PaO2), arterial 168.6 mmHg (> 70.0); Potassium - ABG Lab 3.16 mmol/L (3.70-5.30); pH, Arterial 7.364 (7.35-7.45)
[2023-05-03] MEDS ORDERED: EPINEPHrine 1 MG/10 ML Abboject SYRINGE ONE (03:40)
[2023-05-03 03:44] LABS: #Monocytes 0.9 thou/uL (0.11-0.59); #Neutrophils 13.5 thou/uL (1.40-6.50); %Basophils 0.1 % (0.0-1.0); %Eosinophils 0.3 % (0.0-10.0); %Lymphocytes 6.3 % (21.0-51.0); %Monocytes 5.7 % (0.0-10.0); %Neutrophils 86.6 % (42.0-75.0); Hematocrit 38.1 % (36.0-47.0); Hemoglobin 12.7 g/dL (12.0-16.0); Mean Corpuscular HGB CONC 33.3 g/dL (32.0-36.0); Mean Corpuscular Hemoglobin 32.6 pg (27.0-31.0); Mean Corpuscular Volume 97.9 fl (78.0-98.0); Mean Platelet Volume 8.9 fL (7.4-10.4); Platelet Count 180 10x3/uL (130-400); RBC Distribution Width 14.2 % (11.5-14.5); Red Blood Cell (RBC) Count 3.89 mill/uL (4.20-5.40); White Blood Cell (WBC) Count 15.6 10x3/uL (4.8-10.8)
[2023-05-03 03:57] LABS: Puncture Site RRA
[2023-05-03 03:57] LABS: Prothrombin Time 12.8 sec (12.0-14.7)
[2023-05-03 03:58] LABS: PTT 27.1 sec (22.9-36.1)
[2023-05-03 04:12] LABS: Troponin I 0.023 ng/mL (< 0.028)
[2023-05-03 04:36] LABS: ALT (SGPT) 9 U/L (8-55); AST (SGOT) 20 U/L (5-34); Albumin 3.2 g/dL (3.4-4.8); Alkaline Phosphatase 67 U/L (40-110); Anion Gap 13 mmol/L (10-20); BUN (Urea Nitrogen) 15 mg/dL (9.8-20.1); Bilirubin, Total 0.9 mg/dL (0.2-1.2); Calc. Creatinine Clearance 0 mL/min (70-130); Carbon Dioxide 22 mmol/L (23-31); Chloride 107 mmol/L (98-107); Estimated GFR 75; Globulin 2.2 g/dL (2.4-3.5); Glucose 97 mg/dL (83-110); Magnesium 1.9 mg/dL (1.6-2.6); Potassium 3.4 mmol/L (3.5-5.1); Protein, Total 5.4 g/dL (5.8-8.1); Sodium 139 mmol/L (136-145)
[2023-05-03] MEDS ORDERED: Doxycycline 100 MG in Sodium Chloride 0.9% 100 ML IVPB SCH (04:45)
[2023-05-03 05:38] LABS: Bacteria/HPF None Seen HPF (None Seen); Bilirubin Negative (Negative); Blood, Urine Trace (Negative); CAUTI Indications for Culture Fever or rigors; Clarity Clear (Clear); Glucose, Urine (Dipstick) Normal (Negative); Ketone, Urine Negative (Negative); Leukocyte Negative Leu/uL (Negative); Nitrite Negative (Negative); Protein, Urine (Dipstick) 10 mg/dL (Neg-Trace); RBC/HPF 0-3 HPF (0-3); Squamous Epithelial 0-3 HPF (0-3); Urobilinogen Normal mg/dL (Less than 2); WBC/HPF 0-3 HPF (0-3)
[2023-05-03 05:40] LABS: Urine Culture Reflex No No
[2023-05-03] MEDS ORDERED: Albuterol 2.5 MG (3 mL) NEB NEB PRN (06:14)
[2023-05-03] MEDS ORDERED: Ketorolac Tromethamine 30 MG (1 mL) VIAL ONE (06:16)
[2023-05-03 07:28] LABS: SARS-CoV-2 NAA Rapid Test Not Detected (NotDetected)
[2023-05-03] MEDS: Ipratropium/Albuterol 3 ML NEB NEB SCH ×4 (08:00→23:26)
[2023-05-03] MEDS ORDERED: Enoxaparin 30 MG (0.3 mL) SYRINGE ONE (08:26)
[2023-05-03] MEDS ORDERED: Pantoprazole 40 MG VIAL ONE (08:28)
[2023-05-03] MEDS: Mometasone 100 MCG HFA INHALER (RT USE) INH SCH ×2 (08:30→19:30)
[2023-05-03] MEDS: Enoxaparin 30 MG (0.3 mL) SYRINGE SC SCH (08:35)
[2023-05-03] MEDS: Pantoprazole 40 MG VIAL IVP SCH (08:35)
[2023-05-03] MEDS ORDERED: Cefepime 1 GM VIAL ONE (09:01)
[2023-05-03] MEDS ORDERED: Sodium Chloride 0.9% 100 ML ONE (09:01)
[2023-05-03] MEDS: Cefepime 1 GM in Sodium Chloride 0.9% 100 ML IVPB SCH ×2 (09:08→20:42)
[2023-05-03 09:53] VITALS: BP 81/55
[2023-05-03] MEDS ORDERED: NOREPINEPHRINE 8 MG/250 ML-D5W 250 ML IVPB SCH (11:30)
[2023-05-03] MEDS ORDERED: Lactated Ringer's 1,000 ML IV SCH (11:30)
[2023-05-03 11:50] LABS: Lactic Acid 3.6 mmol/L (0.5-2.2)
[2023-05-03 13:23] LABS: Legionella Urinary Ag Negative (Negative); Strep pneumo Urine Ag POSITIVE (NEGATIVE)
[2023-05-03] MEDS: Lactated Ringer's 1,000 ML IV SCH ×2 (14:00→22:50)
[2023-05-03] MEDS: PALIPERIDONE 3 MG PO SCH (20:42)
[2023-05-03] MEDS: Donepezil HCl 5 MG TAB PO SCH (20:42)
[2023-05-03] MEDS ORDERED: Lorazepam 1 MG TAB PO SCH (20:45)
[2023-05-04] MEDS: Lactated Ringer's 1,000 ML IV SCH (05:04)
[2023-05-04 06:18] LABS: #Monocytes 0.7 thou/uL (0.11-0.59); #Neutrophils 9.4 thou/uL (1.40-6.50); %Basophils 0.2 % (0.0-1.0); %Eosinophils 0.4 % (0.0-10.0); %Lymphocytes 6.1 % (21.0-51.0); %Neutrophils 86.8 % (42.0-75.0); Hematocrit 33.5 % (36.0-47.0); Hemoglobin 10.7 g/dL (12.0-16.0); Mean Corpuscular HGB CONC 31.9 g/dL (32.0-36.0); Mean Corpuscular Hemoglobin 32.2 pg (27.0-31.0); Mean Corpuscular Volume 100.9 fl (78.0-98.0); Mean Platelet Volume 8.9 fL (7.4-10.4); Platelet Count 145 10x3/uL (130-400); RBC Distribution Width 14.4 % (11.5-14.5); Red Blood Cell (RBC) Count 3.32 mill/uL (4.20-5.40); White Blood Cell (WBC) Count 10.8 10x3/uL (4.8-10.8)
[2023-05-04 06:52] LABS: Anion Gap 9 mmol/L (10-20); BUN (Urea Nitrogen) 9 mg/dL (9.8-20.1); Calc. Creatinine Clearance 61 mL/min (70-130); Calcium 8.2 mg/dL (7.8-10.44); Carbon Dioxide 27 mmol/L (23-31); Chloride 106 mmol/L (98-107); Estimated GFR 95; Glucose 81 mg/dL (83-110); Potassium 4.1 mmol/L (3.5-5.1); Sodium 138 mmol/L (136-145)
[2023-05-04] MEDS: Ipratropium/Albuterol 3 ML NEB NEB SCH ×3 (07:07→18:12)
[2023-05-04] MEDS: Mometasone 100 MCG HFA INHALER (RT USE) INH SCH ×2 (07:07→18:15)
[2023-05-04] MEDS: Enoxaparin 30 MG (0.3 mL) SYRINGE SC SCH (09:00)
[2023-05-04] MEDS: Cefepime 1 GM in Sodium Chloride 0.9% 100 ML IVPB SCH (09:00)
[2023-05-04] MEDS: Pantoprazole 40 MG VIAL IVP SCH (09:00)
[2023-05-04] MEDS: Lorazepam 0.5 MG TAB PO SCH (09:00)
[2023-05-04] MEDS: PALIPERIDONE 3 MG PO SCH ×2 (09:06→20:22)
[2023-05-04] MEDS: GUAIFENESIN SF SOLN 200 MG/10 ML UDCUP PO PRN (13:43)
[2023-05-04] MEDS: Acetaminophen 325 MG TAB PO PRN (18:22)
[2023-05-04] MEDS: Amoxicillin/Potassium Clav 875 MG TAB PO SCH (20:22)
[2023-05-04] MEDS: Lorazepam 1 MG TAB PO SCH (20:22)
[2023-05-04] MEDS: Donepezil HCl 5 MG TAB PO SCH (20:22)
[2023-05-05] MEDS: Ipratropium/Albuterol 3 ML NEB NEB SCH ×5 (00:01→23:09)
[2023-05-05 04:13] LABS: #Eosinphils 0.1 thou/uL (0.0-0.7); #Monocytes 0.5 thou/uL (0.11-0.59); #Neutrophils 5.7 thou/uL (1.40-6.50); %Basophils 0.1 % (0.0-1.0); %Eosinophils 1.7 % (0.0-10.0); %Lymphocytes 9.1 % (21.0-51.0); %Monocytes 6.5 % (0.0-10.0); %Neutrophils 82.3 % (42.0-75.0); Hematocrit 38.5 % (36.0-47.0); Hemoglobin 12.3 g/dL (12.0-16.0); Mean Corpuscular HGB CONC 31.9 g/dL (32.0-36.0); Mean Corpuscular Hemoglobin 32.1 pg (27.0-31.0); Mean Corpuscular Volume 100.5 fl (78.0-98.0); Mean Platelet Volume 8.7 fL (7.4-10.4); Platelet Count 136 10x3/uL (130-400); RBC Distribution Width 14.1 % (11.5-14.5); Red Blood Cell (RBC) Count 3.83 mill/uL (4.20-5.40); White Blood Cell (WBC) Count 6.9 10x3/uL (4.8-10.8)
[2023-05-05] MEDS: Mometasone 100 MCG HFA INHALER (RT USE) INH SCH ×2 (06:29→18:33)
[2023-05-05] MEDS: Lorazepam 0.5 MG TAB PO SCH (09:23)
[2023-05-05] MEDS: Enoxaparin 30 MG (0.3 mL) SYRINGE SC SCH (09:23)
[2023-05-05] MEDS: Amoxicillin/Potassium Clav 875 MG TAB PO SCH ×2 (09:23→20:51)
[2023-05-05] MEDS: PALIPERIDONE 3 MG PO SCH ×2 (09:23→20:51)
[2023-05-05] MEDS: Pantoprazole 40 MG VIAL IVP SCH (09:23)
[2023-05-05] MEDS: predniSONE 5 MG TAB PO SCH (09:23)
[2023-05-05] MEDS ORDERED: Metoprolol Tartrate 25 MG TAB PO SCH (10:15)
[2023-05-05] MEDS: Sodium Chloride 0.9% 1,000 ML IV SCH (11:39)
[2023-05-05] MEDS: GUAIFENESIN SF SOLN 200 MG/10 ML UDCUP PO PRN (12:42)
[2023-05-05] MEDS: Donepezil HCl 5 MG TAB PO SCH (20:51)
[2023-05-05] MEDS: Lorazepam 1 MG TAB PO SCH (20:51)
[2023-05-05] MEDS: Acetaminophen 325 MG TAB PO PRN (20:52)
[2023-05-05] MEDS: Metoprolol Tartrate 25 MG TAB PO SCH (20:52)
[2023-05-06 03:32] LABS: #Eosinphils 0.1 thou/uL (0.0-0.7); #Monocytes 0.4 thou/uL (0.11-0.59); #Neutrophils 3.2 thou/uL (1.40-6.50); %Basophils 0.2 % (0.0-1.0); %Eosinophils 1.4 % (0.0-10.0); %Lymphocytes 13.6 % (21.0-51.0); %Monocytes 9.4 % (0.0-10.0); %Neutrophils 74.9 % (42.0-75.0); Hematocrit 35.8 % (36.0-47.0); Hemoglobin 11.7 g/dL (12.0-16.0); Mean Corpuscular HGB CONC 32.7 g/dL (32.0-36.0); Mean Corpuscular Hemoglobin 32.3 pg (27.0-31.0); Mean Corpuscular Volume 98.9 fl (78.0-98.0); Mean Platelet Volume 8.7 fL (7.4-10.4); Platelet Count 142 10x3/uL (130-400); RBC Distribution Width 13.6 % (11.5-14.5); Red Blood Cell (RBC) Count 3.62 mill/uL (4.20-5.40); White Blood Cell (WBC) Count 4.3 10x3/uL (4.8-10.8)
[2023-05-06 03:54] LABS: Anion Gap 9 mmol/L (10-20); BUN (Urea Nitrogen) 9 mg/dL (9.8-20.1); Calc. Creatinine Clearance 59 mL/min (70-130); Calcium 8.4 mg/dL (7.8-10.44); Carbon Dioxide 30 mmol/L (23-31); Chloride 105 mmol/L (98-107); Estimated GFR 94; Glucose 95 mg/dL (83-110); Potassium 3.8 mmol/L (3.5-5.1); Sodium 140 mmol/L (136-145)
[2023-05-06 05:12] VITALS: BMI 18.9
[2023-05-06] MEDS: Sodium Chloride 0.9% 1,000 ML IV SCH ×2 (06:44→14:21)
[2023-05-06] MEDS: Ipratropium/Albuterol 3 ML NEB NEB SCH ×3 (07:35→18:05)
[2023-05-06] MEDS: Mometasone 100 MCG HFA INHALER (RT USE) INH SCH ×2 (07:36→18:06)
[2023-05-06] MEDS: Enoxaparin 30 MG (0.3 mL) SYRINGE SC SCH (08:26)
[2023-05-06] MEDS: PALIPERIDONE 3 MG PO SCH ×2 (08:26→20:35)
[2023-05-06] MEDS: predniSONE 5 MG TAB PO SCH (08:27)
[2023-05-06] MEDS: Lorazepam 0.5 MG TAB PO SCH (08:27)
[2023-05-06] MEDS: Metoprolol Tartrate 25 MG TAB PO SCH ×2 (08:27→20:36)
[2023-05-06] MEDS: Pantoprazole 40 MG VIAL IVP SCH (08:27)
[2023-05-06] MEDS: Amoxicillin/Potassium Clav 875 MG TAB PO SCH ×2 (08:27→20:35)
[2023-05-06] MEDS: GUAIFENESIN SF SOLN 200 MG/10 ML UDCUP PO PRN (08:30)
[2023-05-06] MEDS: Benzonatate 100 MG CAP PO SCH ×2 (15:20→20:35)
[2023-05-06] MEDS: Donepezil HCl 5 MG TAB PO SCH (20:35)
[2023-05-06] MEDS: guaiFENesin ER 600 MG TAB PO SCH (20:35)
[2023-05-06] MEDS: Lorazepam 1 MG TAB PO SCH (20:35)
[2023-05-06] MEDS: Acetaminophen 325 MG TAB PO PRN (20:36)
[2023-05-07] MEDS: Ipratropium/Albuterol 3 ML NEB NEB SCH ×4 (01:12→18:40)
[2023-05-07 03:53] LABS: #Eosinphils 0.1 thou/uL (0.0-0.7); #Monocytes 0.3 thou/uL (0.11-0.59); #Neutrophils 3.4 thou/uL (1.40-6.50); %Basophils 0.4 % (0.0-1.0); %Eosinophils 2.8 % (0.0-10.0); %Lymphocytes 15.4 % (21.0-51.0); %Monocytes 7.4 % (0.0-10.0); %Neutrophils 73.6 % (42.0-75.0); Hematocrit 41.7 % (36.0-47.0); Hemoglobin 13.3 g/dL (12.0-16.0); Mean Corpuscular HGB CONC 31.9 g/dL (32.0-36.0); Mean Corpuscular Hemoglobin 31.6 pg (27.0-31.0); Mean Platelet Volume 9.9 fL (7.4-10.4); Platelet Count 123 10x3/uL (130-400); RBC Distribution Width 13.4 % (11.5-14.5); Red Blood Cell (RBC) Count 4.21 mill/uL (4.20-5.40); White Blood Cell (WBC) Count 4.6 10x3/uL (4.8-10.8)
[2023-05-07 04:16] LABS: Anion Gap 15 mmol/L (10-20); BUN (Urea Nitrogen) 6 mg/dL (9.8-20.1); Calc. Creatinine Clearance 56 mL/min (70-130); Calcium 8.6 mg/dL (7.8-10.44); Carbon Dioxide 24 mmol/L (23-31); Chloride 107 mmol/L (98-107); Estimated GFR 93; Glucose 92 mg/dL (83-110); Sodium 142 mmol/L (136-145)
[2023-05-07] MEDS: Sodium Chloride 0.9% 1,000 ML IV SCH ×2 (06:23→17:18)
[2023-05-07] MEDS: Mometasone 100 MCG HFA INHALER (RT USE) INH SCH ×2 (07:21→18:45)
[2023-05-07] MEDS: Pantoprazole 40 MG VIAL IVP SCH (08:39)
[2023-05-07] MEDS: Enoxaparin 30 MG (0.3 mL) SYRINGE SC SCH (08:39)
[2023-05-07] MEDS: guaiFENesin ER 600 MG TAB PO SCH (09:33)
[2023-05-07] MEDS: PALIPERIDONE 3 MG PO SCH ×2 (09:33→20:39)
[2023-05-07] MEDS: Lorazepam 0.5 MG TAB PO SCH (09:33)
[2023-05-07] MEDS: Amoxicillin/Potassium Clav 875 MG TAB PO SCH ×2 (09:33→20:38)
[2023-05-07] MEDS: predniSONE 5 MG TAB PO SCH (09:33)
[2023-05-07] MEDS: Metoprolol Tartrate 25 MG TAB PO SCH ×2 (09:33→20:39)
[2023-05-07] MEDS: Benzonatate 100 MG CAP PO SCH ×3 (09:33→20:38)
[2023-05-07] MEDS ORDERED: Lorazepam 2 MG/ML VIAL SLOW IVP SCH (12:30)
[2023-05-07] MEDS ORDERED: Ketorolac Tromethamine 30 MG (1 mL) VIAL IVP SCH (12:30)
[2023-05-07] MEDS ORDERED: LORazepam 2 MG/ML SYR.(CARPUJECT) IVP SCH (13:00)
[2023-05-07] MEDS ORDERED: Multivit, Therapeutic 1 TAB PO SCH (15:15)
[2023-05-07] MEDS: Donepezil HCl 5 MG TAB PO SCH (20:38)
[2023-05-07] MEDS: Lorazepam 1 MG TAB PO SCH (20:38)
[2023-05-07] MEDS: GUAIFENESIN SF SOLN 200 MG/10 ML UDCUP PO PRN (21:01)
[2023-05-07] MEDS ORDERED: Acetylcysteine 10% 100 MG/ML (30 ml) SOLN INH SCH (23:00)
[2023-05-08] MEDS: Ipratropium/Albuterol 3 ML NEB NEB SCH ×4 (00:43→18:24)
[2023-05-08] MEDS: guaiFENesin ER 600 MG TAB PO SCH ×2 (00:49→10:12)
[2023-05-08 03:56] LABS: #Eosinphils 0.2 thou/uL (0.0-0.7); #Monocytes 0.5 thou/uL (0.11-0.59); #Neutrophils 4.2 thou/uL (1.40-6.50); %Basophils 0.3 % (0.0-1.0); %Eosinophils 2.6 % (0.0-10.0); %Lymphocytes 15.7 % (21.0-51.0); %Monocytes 7.9 % (0.0-10.0); Hematocrit 40.9 % (36.0-47.0); Hemoglobin 12.7 g/dL (12.0-16.0); Mean Corpuscular HGB CONC 31.1 g/dL (32.0-36.0); Mean Corpuscular Hemoglobin 31.8 pg (27.0-31.0); Mean Corpuscular Volume 102.5 fl (78.0-98.0); Mean Platelet Volume 8.6 fL (7.4-10.4); Platelet Count 146 10x3/uL (130-400); RBC Distribution Width 13.2 % (11.5-14.5); Red Blood Cell (RBC) Count 3.99 mill/uL (4.20-5.40); White Blood Cell (WBC) Count 5.7 10x3/uL (4.8-10.8)
[2023-05-08 04:23] LABS: Anion Gap 14 mmol/L (10-20); BUN (Urea Nitrogen) 6 mg/dL (9.8-20.1); Calc. Creatinine Clearance 54 mL/min (70-130); Calcium 8.3 mg/dL (7.8-10.44); Carbon Dioxide 22 mmol/L (23-31); Chloride 107 mmol/L (98-107); Estimated GFR 93; Glucose 70 mg/dL (83-110); Potassium 3.6 mmol/L (3.5-5.1); Sodium 139 mmol/L (136-145)
[2023-05-08] MEDS: Sodium Chloride 0.9% 1,000 ML IV SCH ×2 (06:30→19:40)
[2023-05-08] MEDS: Mometasone 100 MCG HFA INHALER (RT USE) INH SCH ×2 (07:05→18:25)
[2023-05-08] MEDS ORDERED: Multivit, Therapeutic 1 TAB PO SCH (09:00)
[2023-05-08] MEDS: predniSONE 5 MG TAB PO SCH (10:12)
[2023-05-08] MEDS: Pantoprazole 40 MG VIAL IVP SCH (10:12)
[2023-05-08] MEDS: Amoxicillin/Potassium Clav 875 MG TAB PO SCH (10:13)
[2023-05-08] MEDS: Benzonatate 100 MG CAP PO SCH ×2 (10:14→16:05)
[2023-05-08] MEDS: Metoprolol Tartrate 25 MG TAB PO SCH (10:14)
[2023-05-08] MEDS: Enoxaparin 30 MG (0.3 mL) SYRINGE SC SCH (10:14)
[2023-05-08] MEDS: Lorazepam 0.5 MG TAB PO SCH (10:14)
[2023-05-08] MEDS: PALIPERIDONE 3 MG PO SCH (10:34)
[2023-05-08] MEDS: Acetaminophen 325 MG TAB PO PRN (16:42)
[2023-05-08 16:45] VITALS: TEMP 98.2
[2023-05-08] MEDS ORDERED: Lorazepam 2 MG/ML VIAL SLOW IVP SCH (21:00)
== END 2023-05-08 20:45 | DRG 871 ==
LOC: ERS 03:07 → ERHOLD 06:38 → CCU 10:18 → IMCU/EMU 05-06 21:11
PROVIDERS: ADMIT Internal Medicine; ATTEND Hospitalist
PROC: 4A033R1 Measurement of Arterial Saturation, Peripheral, Percutaneous Approach (ICD-10-PCS; principal; 2023-05-03)
PROC: 3E033XZ Introduction of Vasopressor into Peripheral Vein, Percutaneous Approach (ICD-10-PCS; 2023-05-03)
PROC: 3E03329 Introduction of Other Anti-infective into Peripheral Vein, Percutaneous Approach (ICD-10-PCS; 2023-05-03)
PROC: 5A09357 Assistance with Respiratory Ventilation, Less than 24 Consecutive Hours, Continuous Positive Airway Pressure (ICD-10-PCS; 2023-05-03)
DX: A41.9 Sepsis, unspecified organism (principal); J96.01 Acute respiratory failure with hypoxia; E87.20 Acidosis, unspecified; J44.1 Chronic obstructive pulmonary disease with (acute) exacerbation; I10 Essential (primary) hypertension; F03.90 Unspecified dementia, unspecified severity, without behavioral disturbance, psychotic disturbance, mood disturbance, and anxiety; F41.9 Anxiety disorder, unspecified; E87.6 Hypokalemia; Z11.52 Encounter for screening for COVID-19; Z66 Do not resuscitate; Z88.1 Allergy status to other antibiotic agents; Z88.5 Allergy status to narcotic agent; Z88.8 Allergy status to other drugs, medicaments and biological substances; Z88.2 Allergy status to sulfonamides; Z90.49 Acquired absence of other specified parts of digestive tract; Z98.890 Other specified postprocedural states; M81.0 Age-related osteoporosis without current pathological fracture; G47.33 Obstructive sleep apnea (adult) (pediatric); F20.9 Schizophrenia, unspecified
CPT/HCPCS: 36415; 36556; 36600; 51702; 71045; 71250; 74018; 80048; 80053; 81001; 82805; 83605; 83735; 83880; 84145; 84443; 84484; 85025; 85379; 85610; 85730; 87040; 87077; 87086; 87186; 87449; 87633; 87899; 93005; 94640; 94644; 94660; 94664; 94760; 96365; 96366; 96368; 96375; C9113; J0171; J0692; J1650; J1885; J2060; J3370; J3475; J3490; J7050; J7120; J7512; J7608; J7611; J7620